=== PATIENT | female | born 1945 | race Caucasian/White ===

== ENCOUNTER 2018-06-24 08:48 | Observation (INO) | payer OTHER ==
--- NOTE | 2018-06-24 09:59 | ER ---
Nurse's Notes [facility] Name: Ligia Chandler Age: 73 yrs Sex: Female : 1945 Arrival Date: 06/24/2018 Time: 08:49 Bed 18 Private MD: Yuliana Green Diagnosis: Other chest pain;Type 1 diabetes mellitus;Essential (primary) hypertension;Cystitis;Acute sinusitis Presentation: 06/24 08:52 Presenting complaint: Patient states: fatigue, headache, sneezing, pressure in ears and ss intermittent chest discomfort that began 1 week ago. Transition of care: patient was not received from another setting of care. Onset of symptoms was June 17, 2018. Risk Assessment: Do you want to hurt yourself or someone else? Patient reports no desire to harm self or others. Initial Sepsis Screen: Does the patient meet any 2 criteria? No. Patient's initial sepsis screen is negative. Does the patient have a suspected source of infection? No. Patient's initial sepsis screen is negative. Care prior to arrival: None. 08:52 Method Of Arrival: Ambulatory ss 08:52 Acuity: KARINE 3 ss Historical: - Allergies: 08:57 Doxycycline; ss 08:57 Lisinopril; ss 08:57 Macrobid; ss 08:57 PENICILLINS; ss 08:57 Sulfa (Sulfonamide Antibiotics); ss 08:57 Zithromax; ss - Home Meds: 08:57 fenofibrate micronized 134 mg Oral cap 1 cap once daily [Active]; glimepiride 4 mg Oral ss tab 1 tab twice a day [Active]; metformin 1,000 mg Oral tab 1 tab 2 times per day [Active]; metoprolol tartrate 50 mg Oral tab 1 tab 2 times per day [Active]; rosuvastatin 10 mg oral tab 1 tab once daily [Active]; pantoprazole 40 mg oral TbEC 1 tab once daily [Active]; vasepa 2 caps once DAILY [Active]; Aspirin Low Dose 81 mg Oral TbEC 1 tab once daily [Active]; resiba flex touch, 20 units once daily [Active]; - PMHx: 08:57 Diabetes - IDDM; High Cholesterol; Hypertension; ss - PSHx: 08:57 Cholecystectomy; Heart stents; Hysterectomy; ss - Immunization history:: Adult Immunizations up to date. - Social history:: Smoking status: Patient/guardian denies using tobacco. - Ebola Screening: : Patient denies exposure to infectious person Patient denies travel to an Ebola-affected area in the 21 days before illness onset. - Family history:: not pertinent. Screenin:23 Abuse screen: Denies threats or abuse. Denies injuries from another. Nutritional ph screening: No deficits noted. Tuberculosis screening: No symptoms or risk factors identified. Fall Risk None identified. Assessment: 09:15 General: Appears in no apparent distress. comfortable, well groomed, Behavior is calm, ph cooperative, appropriate for age, Reports fatigue for 2-3 days, Denies fever, feeling ill. Pain: Complains of pain in chest. Neuro: Level of Consciousness is awake, alert, obeys commands, Oriented to person, place, time, situation. Cardiovascular: Reports chest pain, fatigue, Denies nausea, palpitations, shortness of breath, vomiting, Capillary refill < 3 seconds in bilateral fingers Patient's skin is warm and dry. Chest pain is located in right left anterior chest wall substernal area. Respiratory: Airway is patent Respiratory effort is even, unlabored, Respiratory pattern is regular, symmetrical. GI: No signs and/or symptoms were reported involving the gastrointestinal system. EENT: Reports nasal congestion. Derm: Skin is intact, is healthy with good turgor, Skin is pink, warm \T\ dry. Musculoskeletal: Circulation, motion, and sensation intact. Range of motion: intact in all extremities. 10:15 Reassessment: Patient appears in no apparent distress at this time. No changes from aj1 previously documented assessment. Patient and/or family updated on plan of care and expected duration. Pain level reassessed. Patient is alert, oriented x 3, equal unlabored respirations, skin warm/dry/pink. 11:15 Reassessment: Patient and/or family updated on plan of care and expected duration. Pain aj1 level reassessed. General: Appears in no apparent distress. comfortable, Behavior is calm, cooperative, appropriate for age. Neuro: Level of Consciousness is awake, alert, obeys commands. Cardiovascular: Patient's skin is warm and dry. Rhythm is sinus bradycardia. Respiratory: Airway is patent Respiratory effort is even, unlabored, Respiratory pattern is regular, symmetrical. GI: No signs and/or symptoms were reported involving the gastrointestinal system. : No signs and/or symptoms were reported regarding the genitourinary system. EENT: Reports nasal congestion. Derm: Skin is pink, warm \T\ dry. normal. Musculoskeletal: No signs and/or symptoms reported regarding the musculoskeletal system. Circulation, motion, and sensation intact. 12:00 Reassessment: Patient admission pending Dr. Gastelum going to talk to patient. Patient aj1 states that she does not want to be admitted. 12:29 Reassessment: Patient appears in no apparent distress at this time. No changes from aj1 previously documented assessment. Patient and/or family updated on plan of care and expected duration. Pain level reassessed. Patient is alert, oriented x 3, equal unlabored respirations, skin warm/dry/pink. 13:16 Reassessment: Dr. Gastelum at bedside to talk to patient. aj1 13:28 Reassessment: Spoke with Magy, [employer] on 4th floor. Was told to call back in aj1 5 minutes to give report because they are changing which nurse will receive the patient. 13:54 Reassessment: Patient appears in no apparent distress at this time. No changes from aj1 previously documented assessment. Patient and/or family updated on plan of care and expected duration. Pain level reassessed. Patient is alert, oriented x 3, equal unlabored respirations, skin warm/dry/pink. 13:54 Reassessment: Report given to DAVE Goetz on 4th. aj1 Vital Signs: 08:57 BP 165 / 88; Pulse 60; Resp 16; Temp 98.4(O); Pulse Ox 98% on R/A; Weight 73.48 kg; Height 5 ft. 3 in. (160.02 cm); Pain 4/10; 10:10 BP 151 / 74; Pulse 59; Resp 16; Pulse Ox 100% on R/A; ph 11:15 BP 155 / 72; Pulse 65; Resp 18; Pulse Ox 99% on R/A; aj1 12:35 BP 138 / 76; Pulse 57; Resp 12; Pulse Ox 98% on R/A; aj1 13:29 BP 148 / 96; Pulse 54; Resp 18; Pulse Ox 98% on R/A; aj1 08:57 Body Mass Index 28.70 (73.48 kg, 160.02 cm) ED Course: 08:49 Patient arrived in ED. sb2 08:50 Yuliana Green MD is Private Physician. sb2 08:53 Triage completed. ss 08:57 Arm band placed on right wrist. ss 09:23 Yamileth Mccarty RN is Primary Nurse. ph 09:24 Patient has correct armband on for positive identification. Placed in gown. Bed in low ph position. Call light in reach. Side rails up X 1. Pulse ox on. NIBP on. Warm blanket given. 09:24 EKG done, by photographic reproduction technician. reviewed by Estiven Gastelum MD. at1 09:27 Estiven Gastelum MD is Attending Physician. rachel 09:40 Initial lab(s) drawn, by me, sent to lab. Inserted saline lock: 22 gauge in right ph antecubital area, using aseptic technique. Blood collected. 09:56 Jayla Lee MD is Hospitalizing Provider. rachel 10:15 CT completed. Patient tolerated procedure well. Patient moved to CT via wheelchair. sj Patient moved back from CT. 10:30 X-ray completed. Portable x-ray completed in exam room. Patient tolerated procedure jb2 well. 12:30 No provider procedures requiring assistance completed. aj1 13:55 Patient admitted, IV remains in place. aj1 Administered Medications: 10:34 Drug: Aspirin Chewable Tablet 162 mg Route: PO; aj1 11:00 Follow up: Response: No adverse reaction ph 10:35 Drug: NS 0.9% 1000 ml Route: IV; Rate: 125 ml/hr; Site: right antecubital; aj1 13:00 Follow up: Response: No adverse reaction; IV Status: Infusion continued upon admission ph 10:35 Drug: Lovenox 1 mg/kg Route: Sub-Q; Site: right lower abdomen; aj1 11:00 Follow up: Response: No adverse reaction ph 10:35 Not Given (Patient Refused): morphine 2 mg IVP once aj1 10:35 Not Given (Patient Refused): Zofran 4 mg IVP once; over 2 minutes aj1 11:11 Drug: Rocephin - (cefTRIAXone) 2 grams Route: IVPB; Infused Over: 30 mins; Site: right aj1 antecubital; 19:33 Follow up: Response: No adverse reaction; IV Status: Completed infusion ph Outcome: 09:58 Decision to Hospitalize by Provider. rachel 14:41 Admitted to [facility] accompanied by tech, via wheelchair, with chart. aj1 14:41 Condition: stable 14:41 Discharge instructions given to patient, Instructed on the need for admit, Demonstrated understanding of instructions. 14:42 Patient left the ED. aj1 Signatures: Asiya Monte, RN RN aj1 Estiven Gastelum MD MD cha Buechter, Jesse jbLatricia Kevin Shelby, RN RN Araceli guzman, cable technician EKG Tat1 Yamileth Mccarty RN RN Kenya Berman 2
--- NOTE | 2018-06-24 09:59 | EDPHYS ---
Physician Documentation [facility] Name: Ligia Chandler Age: 73 yrs Sex: Female : 1945 Arrival Date: 06/24/2018 Time: 08:49 Bed 18 Private MD: Yuliana Green ED Physician Estiven Gastelum HPI: 06/24 09:51 This 73 yrs old Female presents to ER via Ambulatory with complaints of Chest rachel Congestion. 09:51 The patient or guardian reports chest pain that is located primarily in the substernal rachel area, anterior chest wall. Onset: 1 day(s) ago. The pain does not radiate. Associated signs and symptoms: The patient has no apparent associated signs or symptoms. The chest pain is described as causing indigestion, a pressure. Duration: The patient or guardian reports multiple episodes, with no pattern. Severity of pain: At its worst the pain was mild in the emergency department the pain is unchanged. The patient has experienced similar episodes in the past, a few times. Historical: - Allergies: 08:57 Doxycycline; ss 08:57 Lisinopril; ss 08:57 Macrobid; ss 08:57 PENICILLINS; ss 08:57 Sulfa (Sulfonamide Antibiotics); ss 08:57 Zithromax; ss - Home Meds: 08:57 fenofibrate micronized 134 mg Oral cap 1 cap once daily [Active]; glimepiride 4 mg Oral ss tab 1 tab twice a day [Active]; metformin 1,000 mg Oral tab 1 tab 2 times per day [Active]; metoprolol tartrate 50 mg Oral tab 1 tab 2 times per day [Active]; rosuvastatin 10 mg oral tab 1 tab once daily [Active]; pantoprazole 40 mg oral TbEC 1 tab once daily [Active]; vasepa 2 caps once DAILY [Active]; Aspirin Low Dose 81 mg Oral TbEC 1 tab once daily [Active]; resiba flex touch, 20 units once daily [Active]; - PMHx: 08:57 Diabetes - IDDM; High Cholesterol; Hypertension; ss - PSHx: 08:57 Cholecystectomy; Heart stents; Hysterectomy; ss - Immunization history:: Adult Immunizations up to date. - Social history:: Smoking status: Patient/guardian denies using tobacco. - Ebola Screening: : Patient denies exposure to infectious person Patient denies travel to an Ebola-affected area in the 21 days before illness onset. - Family history:: not pertinent. ROS: 09:51 Constitutional: Negative for fever, chills, and weight loss, Eyes: Negative for injury, rachel pain, redness, and discharge, ENT: Negative for injury, pain, and discharge, Neck: Negative for injury, pain, and swelling, Respiratory: Negative for shortness of breath, cough, wheezing, and pleuritic chest pain, Abdomen/GI: Negative for abdominal pain, nausea, vomiting, diarrhea, and constipation, Back: Negative for injury and pain, : Negative for injury, bleeding, discharge, and swelling, MS/Extremity: Negative for injury and deformity, Skin: Negative for injury, rash, and discoloration, Neuro: Negative for headache, weakness, numbness, tingling, and seizure, Psych: Negative for depression, anxiety, suicide ideation, homicidal ideation, and hallucinations, Allergy/Immunology: Negative for hives, rash, and allergies, Endocrine: Negative for neck swelling, polydipsia, polyuria, polyphagia, and marked weight changes, Hematologic/Lymphatic: Negative for swollen nodes, abnormal bleeding, and unusual bruising. 09:51 Cardiovascular: Positive for chest pain, of the chest. Exam: 09:51 Constitutional: This is a well developed, well nourished patient who is awake, alert, rachel and in no acute distress. Head/Face: Normocephalic, atraumatic. Eyes: Pupils equal round and reactive to light, extra-ocular motions intact. Lids and lashes normal. Conjunctiva and sclera are non-icteric and not injected. Cornea within normal limits. Periorbital areas with no swelling, redness, or edema. ENT: Nares patent. No nasal discharge, no septal abnormalities noted. Tympanic membranes are normal and external auditory canals are clear. Oropharynx with no redness, swelling, or masses, exudates, or evidence of obstruction, uvula midline. Mucous membranes moist. Neck: Trachea midline, no thyromegaly or masses palpated, and no cervical lymphadenopathy. Supple, full range of motion without nuchal rigidity, or vertebral point tenderness. No Meningismus. Chest/axilla: Normal chest wall appearance and motion. Nontender with no deformity. No lesions are appreciated. Cardiovascular: Regular rate and rhythm with a normal S1 and S2. No gallops, murmurs, or rubs. Normal PMI, no JVD. No pulse deficits. Respiratory: Lungs have equal breath sounds bilaterally, clear to auscultation and percussion. No rales, rhonchi or wheezes noted. No increased work of breathing, no retractions or nasal flaring. Abdomen/GI: Soft, non-tender, with normal bowel sounds. No distension or tympany. No guarding or rebound. No evidence of tenderness throughout. Back: No spinal tenderness. No costovertebral tenderness. Full range of motion. Skin: Warm, dry with normal turgor. Normal color with no rashes, no lesions, and no evidence of cellulitis. MS/ Extremity: Pulses equal, no cyanosis. Neurovascular intact. Full, normal range of motion. Neuro: Awake and alert, GCS 15, oriented to person, place, time, and situation. Cranial nerves II-XII grossly intact. Motor strength 5/5 in all extremities. Sensory grossly intact. Cerebellar exam normal. Normal gait. Psych: Awake, alert, with orientation to person, place and time. Behavior, mood, and affect are within normal limits. 09:51 Musculoskeletal/extremity: DVT Exam: No signs of deep vein thrombosis. no pain, no swelling, no tenderness, negative Homans' sign noted on exam, no appreciated bluish discoloration, no erythema, no increased warmth. Vital Signs: 08:57 BP 165 / 88; Pulse 60; Resp 16; Temp 98.4(O); Pulse Ox 98% on R/A; Weight 73.48 kg; Height 5 ft. 3 in. (160.02 cm); Pain 4/10; 10:10 BP 151 / 74; Pulse 59; Resp 16; Pulse Ox 100% on R/A; ph 11:15 BP 155 / 72; Pulse 65; Resp 18; Pulse Ox 99% on R/A; aj1 12:35 BP 138 / 76; Pulse 57; Resp 12; Pulse Ox 98% on R/A; aj1 13:29 BP 148 / 96; Pulse 54; Resp 18; Pulse Ox 98% on R/A; aj1 08:57 Body Mass Index 28.70 (73.48 kg, 160.02 cm) MDM: 09:28 Patient medically screened. [facility] 09:54 Data reviewed: vital signs, nurses notes, lab test result(s), EKG, radiologic studies, [facility] CT scan, plain films. 06/24 09:51 Order name: Basic Metabolic Panel; Complete Time: 14:28 [facility] 06/24 09:51 Order name: CBC with Diff; Complete Time: 10:50 [facility] 06/24 09:51 Order name: Ckmb; Complete Time: 14:28 [facility] 06/24 09:51 Order name: CPK; Complete Time: 14:28 [facility] 06/24 09:51 Order name: LFT's; Complete Time: 14:28 [facility] 06/24 09:51 Order name: Magnesium; Complete Time: 14:28 [facility] 06/24 09:51 Order name: NT PRO-BNP; Complete Time: 14:28 [facility] 06/24 09:51 Order name: PT-INR; Complete Time: 10:50 [facility] 06/24 09:51 Order name: Ptt, Activated; Complete Time: 10:50 [facility] 06/24 09:51 Order name: Troponin (emerg Dept Use Only); Complete Time: 10:50 [facility] 06/24 09:51 Order name: Lipase; Complete Time: 14:28 [facility] 06/24 09:51 Order name: Urine Culture [facility] 06/24 10:13 Order name: Urine Dipstick--Ancillary (enter results) 06/24 10:36 Order name: Urine Dipstick-Ancillary; Complete Time: 10:50 [facility] 06/24 09:51 Order name: XRAY Chest (1 view) [facility] 06/24 09:51 Order name: EKG; Complete Time: 09:52 [facility] 06/24 09:51 Order name: Cardiac monitoring; Complete Time: 10:36 [facility] 06/24 09:51 Order name: EKG - Nurse/Tech; Complete Time: 09:57 [facility] 06/24 09:51 Order name: CT Head Brain wo Cont [facility] 06/24 10:03 Order name: CONS Physician Consult [facility] 06/24 10:03 Order name: Echo with Doppler [facility] 06/24 10:24 Order name: CT; Complete Time: 10:50 [facility] 06/24 10:40 Order name: RAD; Complete Time: 10:50 [facility] 06/24 13:59 Order name: Diet Renal; Complete Time: 14:00 aj1 06/24 09:51 Order name: IV Saline Lock; Complete Time: 09:57 [facility] 06/24 09:51 Order name: Labs collected and sent; Complete Time: :58 [facility] 06/24 09:51 Order name: O2 Per Protocol; Complete Time: :58 [facility] 06/24 09:51 Order name: O2 Sat Monitoring; Complete Time: :58 [facility] 06/24 09:51 Order name: Urine Dipstick-Ancillary (obtain specimen); Complete Time: 10:07 [facility] Administered Medications: 10:34 Drug: Aspirin Chewable Tablet 162 mg Route: PO; aj1 11:00 Follow up: Response: No adverse reaction ph 10:35 Drug: NS 0.9% 1000 ml Route: IV; Rate: 125 ml/hr; Site: right antecubital; aj1 13:00 Follow up: Response: No adverse reaction; IV Status: Infusion continued upon admission ph 10:35 Drug: Lovenox 1 mg/kg Route: Sub-Q; Site: right lower abdomen; aj1 11:00 Follow up: Response: No adverse reaction ph 10:35 Not Given (Patient Refused): morphine 2 mg IVP once aj1 10:35 Not Given (Patient Refused): Zofran 4 mg IVP once; over 2 minutes aj1 11:11 Drug: Rocephin - (cefTRIAXone) 2 grams Route: IVPB; Infused Over: 30 mins; Site: right aj1 antecubital; 19:33 Follow up: Response: No adverse reaction; IV Status: Completed infusion ph Disposition: 06/24/18 09:58 Hospitalization ordered by Jayla Lee for Observation. Preliminary diagnosis are Other chest pain, Type 1 diabetes mellitus, Essential (primary) hypertension, Cystitis, Acute sinusitis. - Bed requested for Telemetry/MedSurg (observation). - Status is Observation. aj1 - Condition is Stable. - Problem is new. - Symptoms have improved. UTI on Admission? Yes Signatures: Dispatcher [employer] EDAsiya Ingram RN RN aj1 Estiven Gastelum MD MD cha Smirch, Shelby, RN RN ss Botello, Elizabeth eb Hall, Patricia RN ph Corrections: (The following items were deleted from the chart) 10:52 09:58 Hospitalization Ordered by Jayla Lee MD for Observation. Preliminary [facility] diagnosis is Other chest pain; Type 1 diabetes mellitus; Essential (primary) hypertension. Bed requested for Telemetry/MedSurg (observation). Status is Observation. Condition is Stable. Problem is new. Symptoms have improved. UTI on Admission? No. rachel 11:39 10:52 06/24/2018 09:58 Hospitalization Ordered by Jayla Lee MD for Observation. eb Preliminary diagnosis is Other chest pain; Type 1 diabetes mellitus; Essential (primary) hypertension; Cystitis; Acute sinusitis. Bed requested for Telemetry/MedSurg (observation). Status is Observation. Condition is Stable. Problem is new. Symptoms have improved. UTI on Admission? Yes. rachel 11:40 11:39 06/24/2018 09:58 Hospitalization Ordered by Jayla Lee MD for Observation. eb Preliminary diagnosis is Other chest pain; Type 1 diabetes mellitus; Essential (primary) hypertension; Cystitis; Acute sinusitis. Bed requested for Telemetry/MedSurg (observation). Status is Observation. Condition is Stable. Problem is new. Symptoms have improved. UTI on Admission? Yes. 14:42 11:40 06/24/2018 09:58 Hospitalization Ordered by Jayla Lee MD for Observation. aj1 Preliminary diagnosis is Other chest pain; Type 1 diabetes mellitus; Essential (primary) hypertension; Cystitis; Acute sinusitis. Bed requested for Telemetry/MedSurg (observation). Status is Observation. Condition is Stable. Problem is new. Symptoms have improved. UTI on Admission? Yes. eb
[2018-06-24] MEDS ORDERED: D50W 25 GM/50 ML SYRINGE IV PRN (10:03)
[2018-06-24] MEDS ORDERED: GLUCAGON 1 MG/VIAL IM PRN (10:03)
[2018-06-24] MEDS ORDERED: ASPIRIN 81 MG CHEWABLE TABLET ONE (10:19)
[2018-06-24] MEDS ORDERED: MORPHINE 4 MG/ML SYR ONE (10:19)
[2018-06-24] MEDS ORDERED: NA CHLORIDE 0.9% 1,000 ML ONE (10:20)
[2018-06-24] MEDS ORDERED: ENOXAPARIN 80 MG/0.8 ML SQ ONE (10:20)
[2018-06-24] MEDS ORDERED: ONDANSETRON 4 MG/2 ML VIAL ONE (10:20)
--- NOTE | 2018-06-24 10:24 | RAD REPORT ---
EXAM DESCRIPTION: CT - Head Brain Wo Cont - 06/24/2018 10:15 am CLINICAL HISTORY: Headache COMPARISON: March 2017 TECHNIQUE: Computed axial tomography of the head was obtained. IV contrast was not requested. All CT scans are performed using dose optimization technique as appropriate and may include automated exposure control or mA/KV adjustment according to patient size. FINDINGS: An intracranial bleed is not seen . The ventricles are normal in caliber. No extra-axial fluid collection is noted. Moderate low-density areas within periventricular, deep and subcortical white matter likely represent ischemic changes secondary to small vessel disease. Partial opacification of the right ethmoid sinuses is present. Right aspect of the frontal sinus is c ompletely opacified. The mastoids are clear. IMPRESSION: No acute intracranial abnormality is seen. If patient's symptoms persist MRI of the bra in would be recommended. Sinusitis
[2018-06-24 10:29] LABS: Absolute Lymphocytes (CBC) 1.1 K/uL (0.7-4.9); Absolute Monocytes 0.3 K/uL (0.1-1.3); Absolute Neutrophil 5.3 K/uL (1.8-8.0); Basophils % 0.9 % (0-1.3); Eosinophils % 3.2 % (0-4.4); Hematocrit 34.1 % (36.0-45.0); MCH 32.1 pg (27.0-35.0); MCV 93.6 fL (80-100); MPV 9.3 fL (7.6-11.3); Monocytes % 4.1 % (3.3-12.3); RBC Red Blood Cell Count 3.64 M/uL (3.86-4.86)
[2018-06-24 10:32] LABS: Protime INR 0.93
[2018-06-24 10:36] LABS: Urine Blood NEGATIVE (NEG); Urine Glucose NEGATIVE (NEG); Urine Protein NEGATIVE (NEG); Urine pH 5.5 (5.0-7.0)
--- NOTE | 2018-06-24 10:40 | RAD REPORT ---
EXAM DESCRIPTION: Devorah Single View06/24/2018 10:31 am CLINICAL HISTORY: Chest pain COMPARISON: 2015 FINDINGS: The lungs appear clear of acute infiltrate. The heart is normal size IMPRESSION: No acute abnormalities displayed
[2018-06-24 10:49] LABS: ALT/SGPT 23 U/L (12-78); AST/SGOT 17 U/L (15-37); Albumin 3.6 g/dL (3.4-5.0); Alkaline Phosphatase 49 U/L (45-117); BUN Blood Urea Nitrogen 16 mg/dL (7-18); Bicarbonate 26 mmol/L (21-32); Bilirubin Direct 0.1 mg/dL (0-0.2); Bilirubin Total 0.3 mg/dL (0.2-1.0); CKMB Creatine Kinase MB < 1.0 ng/mL (0.3-3.6); Creatine Phosphokinase 60 U/L (26-192); Glucose Level 257 mg/dL (74-106); Lipase 76 U/L (73-393); Magnesium 2.1 mg/dL (1.8-2.4); NT PRO-BNP 498 pg/mL (<125); Sodium Level 140 mmol/L (136-145)
[2018-06-24] MEDS ORDERED: CEFTRIAXONE/SWI 1gm 1 GM/10 ML SYR ONE (11:05)
[2018-06-24] MEDS: INSULIN -REGULAR HUMAN 50 UNIT/0.5 ML ML SQ SCH ×3 (11:30→20:18)
--- NOTE | 2018-06-24 14:19 | ECHO ---
HEIGHT: 5 ft 3 in WEIGHT: 1614 lb oz DATE OF STUDY: 06/24/[address]: Estiven Gastelum MD 2-DIMENSIONAL: YES M.MODE: YES DOPPLER: YES COLOR FLOW: YES TDS: NO PORTABLE: NO DEFINITY: NO BUBBLE STUDY: NO DIAGNOSIS: CHEST PAIN CARDIAC HISTORY: CATHERIZATION: YES SURGERY: NO PROSTHETIC VALVE: NO PACEMAKER: NO MEASUREMENTS (cm) DIASTOLIC (NORMALS) SYSTOLIC (NORMALS) IVSd 1.1 (0.6-1.2) LA Diam 3.7 (1.9-4.0) LVEF 65% LVIDd 4.3 (3.5-5.7) LVIDs 2.8 (2.0-3.5) %FS 35% LVPWd 1.2 (0.6-1.2) Ao Diam 2.3 (2.0-3.7) 2 DIMENSIONAL ASSESSMENT: RIGHT ATRIUM: NORMAL LEFT ATRIUM: NORMAL RIGHT VENTRICLE: NORMAL LEFT VENTRICLE: NORMAL TRICUSPID VALVE: NORMAL MITRAL VALVE: NORMAL PULMONIC VALVE: NORMAL AORTIC VALVE: NORMAL PERICARDIAL EFFUSION: NONE AORTIC ROOT: NORMAL LEFT VENTRICULAR WALL MOTION: NORMAL. DOPPLER/COLOR FLOW: MILD AORTIC REGURGITATION. MILD MITRAL REGURGITATION. PHYSIOLOGIC TRICUSPID REGURGITATION. NORMAL RIGHT VENTRICULAR SYSTOLIC PRESSURE. COMMENTS: NORMAL 2D ECHO. MILD AORTIC REGURGITATION. MILD MITRAL REGURGITATION. TECHNOLOGIST: KEILY AG
--- NOTE | 2018-06-24 14:34 | EKG ---
Test Date: 2018-06-24 Test Time: 09:21:11 Pediatric Neuropsychologist: LILIANA MEASUREMENT RESULTS: Intervals: Rate: 63 MI: 178 QRSD: 80 QT: 444 QTc: 454 [place]: P: 68 MI: 178 QRS: 4 T: 49 INTERPRETIVE STATEMENTS: Normal sinus rhythm Normal ECG Compared to ECG 05/31/2016 07:17:35 Sinus bradycardia no longer present Left ventricular hypertrophy no longer present Electronically Signed On 06-24-18 14:34:15 CDT by Aramis Gerber
[2018-06-24 15:38] VITALS: O2SAT 100; BMI 28.0
[2018-06-24] MEDS: PANTOPRAZOLE 40MG TABLET PO SCH (16:32)
--- NOTE | 2018-06-24 17:12 | P.HP ---
Certification for Inpatient Patient admitted to: Observation With expected LOS: <2 Midnights Patient will require the following post-hospital care: None Practitioner: I am a practitioner with admitting privileges, knowledge of patient current condition, hospital course, and medical plan of care. Services: Services provided to patient in accordance with Admission requirements found in Title 42 Section 412.3 of the Code of Federal Regulations Patient History Date of Service: 06/24/18 Primary Care Provider: Dr Garcia - PCP and Dr Gerber - Cardiology Reason for admission: Chest pain History of Present Illness: This is a 73-year-old female with significant past medical history of hypertension, diabetes who presented to the ED complaining of having some chest discomfort. Patient stated that her chest discomfort started about 1 week ago while she was outside in the heat, painting chairs. Patient's initially thought it was her allergies that were getting worse. She was having some postnasal drip along with the chest pain. further this morning she started having some jaw numbness and thus decided to come to the ER. Patient stated that in the ER she has continued to have the chest discomfort which was dull in nature. She also had numbness to the jaw which concerned her and thus she decided to come to the ER. No other associated symptoms. Patient had having any shortness of breath nausea vomiting or in any other associated symptoms. Allergies azithromycin [From Zithromax] Allergy (Verified 01/11/15 16:20) Rash lisinopril Allergy (Verified 06/24/18 15:46) Rash nitrofurantoin [From Macrobid] Allergy (Verified 01/11/15 16:20) Rash nitrofurantoin macrocrystal [From Macrobid] Allergy (Verified 01/11/15 16:20) Rash Penicillins Allergy (Verified 01/11/15 16:20) Rash Sulfa (Sulfonamide Antibiotics) Allergy (Verified 01/11/15 16:20) Rash Doxycycline Allergy (Uncoded 06/02/16 10:33) Unknown Home Medications: Aspirin [Low Dose Aspirin EC] 81 mg PO DAILY 06/24/18 Cholecalciferol (Vitamin D3) [Vitamin D3] 5,000 unit PO DAILY 06/24/18 Cyanocobalamin [Vitamin B-12*] 1,000 mcg PO DAILY 06/24/18 Docosahexanoic AC/Epa [Fish Oil 1,000 MG*] 1,000 mg PO DAILY 06/24/18 Fenofibrate,Micronized [Fenofibrate] 134 mg PO DAILY 06/24/18 Glimepiride 4 mg PO BID 06/24/18 Glucosamine HCl/Chondr Duke A Na [Osteo Bi-Flex Caplet] 1 tab PO DAILY 06/24/18 Insulin Degludec [Tresiba Flextouch U-200] 20 units SQ DAILY 06/24/18 Metformin HCl 1,000 mg PO BID 06/24/18 Metoprolol Tartrate [Lopressor*] 50 mg PO BID 06/24/18 Pantoprazole Sodium [Protonix] 40 mg PO DAILY 06/24/18 Rosuvastatin [Crestor*] 10 mg PO DAILY 06/24/18 - Past Medical/Surgical History Has patient received pneumonia vaccine in the past: Yes Diabetic: Yes -: Diabetes mellitus type 2 -: Coronary artery disease, stent 2014, Cardiology-Dr. Gerber -: Hypertension -: Hyperlipidemia -: GERD with hiatal hernia -: Cholecystectomy -: Hysterectomy -: Cardiac Stent placement Psychosocial/ Personal History: She is 50 years, has 2 children, she is retired. - Family History Mother -: Heart disease, Cancer Notes: breast Cancer; bone cancer Father -: Heart disease - Social History Smoking Status: Never smoker Alcohol use: No CD- Drugs: No Caffeine use: Yes Place of Residence: Home Review of Systems General: As per HPI Physical Examination - Vital Signs Temperature: 97.3 F Blood Pressure: 166/70 Pulse: 62 Respirations: 18 Pulse Ox (%): 95 - Physical Exam General: Alert, In no apparent distress HEENT: Atraumatic, PERRLA, Mucous membr. moist/pink, EOMI, Sclerae nonicteric Neck: Supple, 2+ carotid pulse no bruit, No LAD, Without JVD or thyroid abnormality Respiratory: Clear to auscultation bilaterally, Normal air movement Cardiovascular: Regular rate/rhythm, Normal S1 S2 Gastrointestinal: Normal bowel sounds, No tenderness Musculoskeletal: No tenderness Integumentary: No rashes Neurological: Normal gait, Normal speech, Normal strength at 5/5 x4 extr, Normal tone, Normal affect Lymphatics: No axilla or inguinal lymphadenopathy - Studies Laboratory Data (last 24 hrs) 06/24/18 09:55: PT 11.0, INR 0.93, APTT 30.8 06/24/18 09:55: WBC 7.0, Hgb 11.7 L, Hct 34.1 L, Plt Count 329 06/24/18 09:55: Sodium 140, Potassium 4.0, BUN 16, Creatinine 1.00, Glucose 257 H, Magnesium 2.1, Total Bilirubin 0.3, AST 17, ALT 23, Alkaline Phosphatase 49, Lipase 76 Assessment and Plan - Problems (Diagnosis) (1) Chest pain Onset Date: 05/31/16 Current Visit: No Status: Acute Plan: Patient with coronary artery disease and previous stent in 2014. Atypical Chest Pain -Troponin x 1 negative and EKG WNL. -Cardiology consulted. Awaiting Reccs -ACS protocol: BB, Anticoagulation, Statin -ECHO WNL today Qualifiers: Chest pain type: other chest pain Qualified Code(s): R07.89 - Other chest pain; R07.8 - Other chest pain (2) Coronary artery disease Onset Date: 05/31/16 Current Visit: No Status: Chronic Plan: Restart on Home medication Qualifiers: Coronary Disease-Associated Artery/Lesion type: [place] artery [place] vs. transplanted heart: [place] heart Associated angina: without angina Qualified Code(s): I25.10 - Atherosclerotic heart disease of [place] coronary artery without angina pectoris (3) Diabetes mellitus Onset Date: 05/31/16 Current Visit: No Status: Chronic Plan: ISS Qualifiers: Diabetes mellitus type: type 2 Diabetes mellitus terminal superintendent insulin use: without residential use Diabetes mellitus complication status: without complication Qualified Code(s): E11.9 - Type 2 diabetes mellitus without complications (4) Hiatal hernia with GERD Onset Date: 05/31/16 Current Visit: No Status: Chronic Plan: Protonix (5) Hyperlipidemia Onset Date: 05/31/16 Current Visit: No Status: Chronic Qualifiers: Hyperlipidemia type: mixed hyperlipidemia Qualified Code(s): E78.2 - Mixed hyperlipidemia (6) Hypertension Onset Date: 05/31/16 Current Visit: No Status: Chronic Qualifiers: Hypertension type: essential hypertension - Advance Directives Does patient have a Living Will: No Does patient have a Durable POA for Healthcare: No
[2018-06-24] MEDS ORDERED: ACETAMINOPHEN 500 MG TAB PO PRN (18:22)
[2018-06-24] MEDS ORDERED: ONDANSETRON 4 MG/2 ML VIAL IV PRN (18:22)
[2018-06-24] MEDS: METOPROLOL TAR 50 MG TAB PO SCH (20:16)
[2018-06-24] MEDS ORDERED: ROSUVASTATIN 10 MG TAB PO SCH (21:00)
[2018-06-25 06:44] LABS: Absolute Lymphocytes (CBC) 2.4 K/uL (0.7-4.9); Absolute Monocytes 0.4 K/uL (0.1-1.3); Absolute Neutrophil 4.2 K/uL (1.8-8.0); Basophils % 1.2 % (0-1.3); Eosinophils % 5.4 % (0-4.4); Hematocrit 34.2 % (36.0-45.0); Lymphocytes % 31.4 % (15.3-44.8); MCV 93.3 fL (80-100); MPV 9.7 fL (7.6-11.3); Monocytes % 5.9 % (3.3-12.3); RBC Red Blood Cell Count 3.67 M/uL (3.86-4.86)
[2018-06-25 06:57] LABS: Albumin 3.4 g/dL (3.4-5.0); Bilirubin Total 0.3 mg/dL (0.2-1.0); Potassium 3.9 mmol/L (3.5-5.1); Protein, Total 6.8 g/dL (6.4-8.2)
--- NOTE | 2018-06-25 06:59 | CON ---
Identification: A 73-year-old woman. Chief Complaint: Chest pain. History Of Present Illness: Mrs. Chandler is a woman who has diabetes. She had a stent in her circum flex coronary artery in 2015. She has done well since then. She has atypical chest pain most of the time. Last time I saw her in the office and recommended doing a stress test because I was very susp icious that the pain was caused by recurrent CAD, but she managed not to do a stress test. She is he re in the hospital now, overnight she has had chest pain for many weeks, months, it is atypical. It is in the upper part of her chest, not pleuritic, but it is constant, not related to exertion. Nothi ng in particular seems to relieve it and it comes and goes in waves that just last 10 or 15 seconds. Since she has been in the hospital, EKGs and cardiac enzymes are normal and an echocardiogram is nor mal. Social History: The patient uses no tobacco. Rare alcohol. No illegal drugs. Outpatient Medications: Vitamin B12, vitamin D3, aspirin, glucosamine, Protonix, Crestor, metoprolol , metformin, glimepiride, fenofibrate, fish oil, insulin. Allergies: SHE IS ALLERGIC TO AZITHROMYCIN, LISINOPRIL, NITROFURANTOIN. Physical Examination: Vital Signs: 5 feet 3, 161 pounds. HEENT: Normal carotids. No bruit. Lungs: Clear. Cardiac: Normal. Abdomen: Soft. Extremities: Palpable distal pulses. No edema. Impression: The patient probably is not having unstable angina. I believe she has stable coronary a rtery disease. We will do a pharmacologic stress test that is okay today. She can be discharged. TILA Voice ID: [id number] Report ID: [id number]
[2018-06-25] MEDS: INSULIN -REGULAR HUMAN 50 UNIT/0.5 ML ML SQ SCH ×3 (07:30→17:04)
[2018-06-25] MEDS: PANTOPRAZOLE 40MG TABLET PO SCH (07:30)
[2018-06-25] MEDS: METOPROLOL TAR 50 MG TAB PO SCH ×2 (07:50→16:23)
[2018-06-25] MEDS ORDERED: REGADENOSON 0.4 MG/5 ML SYR IV ONE (08:56)
[2018-06-25] MEDS ORDERED: ENOXAPARIN 40 MG/0.4 ML SQ SCH (09:00)
[2018-06-25] MEDS ORDERED: HOME MED 1 EA UNK (Fenofibrate,Micronized [Fenofibrate] 134 MG) PO SCH (09:00)
[2018-06-25] MEDS ORDERED: POTASSIUM 25 MEQ EFFERV TAB PO ONE (09:00)
[2018-06-25] MEDS ORDERED: CYANOCOBALAMIN 1,000 MCG TAB PO SCH (09:00)
[2018-06-25] MEDS ORDERED: VITAMIN D 5,000 UNIT CAP PO SCH (09:00)
[2018-06-25] MEDS ORDERED: ASPIRIN EC 81 MG TAB PO SCH (09:00)
--- NOTE | 2018-06-25 10:29 | RAD REPORT ---
EXAM DESCRIPTION: NM - Rest Stress Cardiac Imaging - 06/25/2018 9:54 am CLINICAL HISTORY: Chest pain COMPARISON: None. TECHNIQUE: The patient was administered 10.5 mCi of Tc 99m Sestamibi prior to resting SPECT imaging of the heart. The patient was then administered 31.4 mCi of Tc 99m Sestamibi following exercise or ph armacologic stress. Multiplanar SPECT images were reviewed. FINDINGS: The end diastolic volume is 73 ml, the end systolic volume is 20 ml, and the ejection frac tion is 72 %. No stress-induced ischemic changes are identifiable. Focal diminished activity at the anteroseptal ap ex is unchanged between rest and stress imaging. This could be scarring, attenuation artifact or a co mbination. IMPRESSION: No stress-induced ischemic change. Small fixed defect anteroseptal wall near the apex. This could be attenuation artifact, scarring or a combination. Ventricular volumes and ejection fraction are well within normal limits.
--- NOTE | 2018-06-25 12:45 | TREADPHA ---
DX: CHEST PAIN, CORNARY ARTERY DISEASE Date of Study: 06/25/2018 Ht: 5 3.5 Wt: 161 lb 0 oz Consulting Physician: LOI MEDICATIONS: TYLENOL, ASPIRIN, VITAMIN D, VITAMIN B12, DEXTROSE, LOVENOX, GLUCAGEN, NOVOLIN-R,, LOPRESSOR, ZOFRAN, PROTONIX, CRESTOR HISTORY: 73 YEAR OLD FEMALE WITH COMPLAINTS OF CHEST PAIN. HISTORY OF DIABETES MELLITUS AND HYPERTENSION. PHYSICIAL EXAMINATION: RESTING B.P.: 154/68 RESTING H.R.: 58 RESTING EKG: SINUS BRADYCARDIA, OTHERWISE NORMAL PROTOCOL: LEXISCAN EXERCISE TIME: 3:30 B.P. AT PEAK STRESS: 168/89 IMPRESSION: LEXISCAN INJECTED. CARDIOLITE INJECTED PER PROTOCOL. SEE NUCLEAR MEDICINE REPORT. COMPLAINTS OF CHEST PRESSURE TWO OUT OF TEN ON PAIN SCALE. NO VENTRICULAR TACHYCARDIA. NO SUPRAVENTRICULAR TACHYCARDIA. NON-DIAGNOSTIC ELECTROCARDIOGRAM WITH LEXISCAN STRESS.
--- NOTE | 2018-06-25 16:01 | P.DS ---
Admission Date: 06/24/18 Discharge Date: 06/25/18 Primary Care Provider: Dr Garcia - PCP and Dr Gerber - Cardiology Disposition: ROUTINE DISCHARGE Discharge Condition: GOOD Reason for Admission: Chest pain - Problems (1) Chest pain Onset Date: 05/31/16 Current Visit: No Status: Acute Qualifiers: Chest pain type: other chest pain Qualified Code(s): R07.89 - Other chest pain; R07.8 - Other chest pain (2) Coronary artery disease Onset Date: 05/31/16 Current Visit: No Status: Chronic Qualifiers: Coronary Disease-Associated Artery/Lesion type: [place] artery [place] vs. 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 insulin use: without watermelon inspector use Diabetes mellitus complication status: without complication Qualified Code(s): E11.9 - Type 2 diabetes mellitus without complications (4) Hiatal hernia with GERD Onset Date: 05/31/16 Current Visit: No Status: Chronic (5) Hyperlipidemia Onset Date: 05/31/16 Current Visit: No Status: Chronic Qualifiers: Hyperlipidemia type: mixed hyperlipidemia Qualified Code(s): E78.2 - Mixed hyperlipidemia (6) Hypertension Onset Date: 05/31/16 Current Visit: No Status: Chronic Qualifiers: Hypertension type: essential hypertension Brief History of Present Illness: This is a 73-year-old female with significant past medical history of hypertension, diabetes who presented to the ED complaining of having some chest discomfort. Patient stated that her chest discomfort started about 1 week ago while she was outside in the heat, painting chairs. Patient's initially thought it was her allergies that were getting worse. She was having some postnasal drip along with the chest pain. further this morning she started having some jaw numbness and thus decided to come to the ER. Patient stated that in the ER she has continued to have the chest discomfort which was dull in nature. She also had numbness to the jaw which concerned her and thus she decided to come to the ER. No other associated symptoms. Patient had having any shortness of breath nausea vomiting or in any other associated symptoms. Hospital Course: Overall during the hospital stay patient remained stable Patient was initially admitted the hospital for chest pain. Patient had echocardiogram done here in the hospital along with stress test. All were negative thus r/o ACS. Patient was that he had marked anxiety. Patient was asked to follow up with her primary care provider for per appropriate medication for anxiety and stress relief. Patient demonstrated understanding and thus was discharged home under stable condition. Patient was also asked to follow up with cardiology in about 1-2 weeks post discharge. Patient does not need any further cardiac workup. Patient demonstrated understanding and thus was discharged home under stable condition Vital Signs/Physical Exam: Temp Pulse Resp BP Pulse Ox 97.7 F 56 16 141/62 H 99 06/25/18 12:00 06/25/18 12:00 06/25/18 12:00 06/25/18 12:00 06/25/18 12:00 General: Alert, In no apparent distress HEENT: Atraumatic, PERRLA, EOMI Neck: Supple, JVD not distended Respiratory: Clear to auscultation bilaterally, Normal air movement Cardiovascular: Regular rate/rhythm, Normal S1 S2 Gastrointestinal: Normal bowel sounds, No tenderness Musculoskeletal: No tenderness Integumentary: No rashes Neurological: Normal speech, Normal tone, Normal affect Lymphatics: No axilla or inguinal lymphadenopathy Laboratory Data at Discharge: WBC 7.6 K/uL (4.3-10.9) 06/25/18 05:34 Hgb 11.7 g/dL (12.0-15.0) L 06/25/18 05:34 Hct 34.2 % (36.0-45.0) L 06/25/18 05:34 Plt Count 292 K/uL (152-406) 06/25/18 05:34 PT 11.0 SECONDS (9.5-12.5) 06/24/18 09:55 INR 0.93 06/24/18 09:55 APTT 30.8 SECONDS (24.3-36.9) 06/24/18 09:55 Sodium 143 mmol/L (136-145) 06/25/18 05:34 Potassium 3.9 mmol/L (3.5-5.1) 06/25/18 05:34 BUN 19 mg/dL (7-18) H 06/25/18 05:34 Creatinine 0.90 mg/dL (0.55-1.3) 06/25/18 05:34 Glucose 126 mg/dL (74-106) H 06/25/18 05:34 Phosphorus 3.4 mg/dL (2.5-4.9) 06/25/18 05:34 Magnesium 2.1 mg/dL (1.8-2.4) 06/24/18 09:55 Total Bilirubin 0.3 mg/dL (0.2-1.0) 06/25/18 05:34 AST 15 U/L (15-37) 06/25/18 05:34 ALT 21 U/L (12-78) 06/25/18 05:34 Alkaline Phosphatase 46 U/L (45-117) 06/25/18 05:34 Troponin I < 0.02 ng/mL (0.0-0.045) 06/25/18 10:49 Lipase 76 U/L (73-393) 06/24/18 09:55 Home Medications: Aspirin [Low Dose Aspirin EC] 81 mg PO DAILY 06/24/18 Cholecalciferol (Vitamin D3) [Vitamin D3] 5,000 unit PO DAILY 06/24/18 Cyanocobalamin [Vitamin B-12*] 1,000 mcg PO DAILY 06/24/18 Docosahexanoic AC/Epa [Fish Oil 1,000 MG*] 1,000 mg PO DAILY 06/24/18 Fenofibrate,Micronized [Fenofibrate] 134 mg PO DAILY 06/24/18 Glimepiride 4 mg PO BID 06/24/18 Glucosamine HCl/Chondr Duke A Na [Osteo Bi-Flex Caplet] 1 tab PO DAILY 06/24/18 Insulin Degludec [Tresiba Flextouch U-200] 20 units SQ DAILY 06/24/18 Metformin HCl 1,000 mg PO BID 06/24/18 Metoprolol Tartrate [Lopressor*] 50 mg PO BID 06/24/18 Pantoprazole Sodium [Protonix] 40 mg PO DAILY 06/24/18 Rosuvastatin [Crestor*] 10 mg PO DAILY 06/24/18 Diet: Regular Activity: [place] Followup: Aramis Gerber MD [ACTIVE - CAN ADMIT] - 1 Week
[2018-06-25 16:30] VITALS: TEMP 97.5
[2018-06-25 17:46] VITALS: BP 170/72
== END 2018-06-25 18:25 | disposition home or self-care (01) ==
LOC: ER 08:48 → ERHOLD 09:59 → 4TH 13:58
PROVIDERS: ADMIT Family Medicine; ATTEND Family Medicine
DX: R07.89 Other chest pain (principal); R00.1 Bradycardia, unspecified; I25.10 Atherosclerotic heart disease of native coronary artery without angina pectoris; K21.9 Gastro-esophageal reflux disease without esophagitis; K44.9 Diaphragmatic hernia without obstruction or gangrene; E11.9 Type 2 diabetes mellitus without complications; E78.2 Mixed hyperlipidemia; I10 Essential (primary) hypertension; F41.9 Anxiety disorder, unspecified; Z79.82 Long term (current) use of aspirin; Z79.4 Long term (current) use of insulin; Z95.5 Presence of coronary angioplasty implant and graft; Z88.1 Allergy status to other antibiotic agents; Z88.3 Allergy status to other anti-infective agents; Z88.8 Allergy status to other drugs, medicaments and biological substances; Z88.0 Allergy status to penicillin; Z88.2 Allergy status to sulfonamides
CPT/HCPCS: 36415; 70450; 71045; 78452; 80048; 80053; 80076; 81003; 82550; 82553; 82962 ×5; 83690; 83735; 83880; 84100; 84484 ×4; 85025 ×2; 85610; 85730; 87086; 87088; 93005; 93017; 93306; 96361; 96365; 96366; 96372; 99285; A9500; G0378 ×2; J0696; J1650 ×2; J2405; J2785; J7030

== ENCOUNTER 2023-01-29 19:44 | Emergency (ER) | payer MEDICARE, OTHER ==
--- OUTSIDE RECORDS SUMMARY | 2023-01-29 19:47 | XMS REPORT | Continuity of Care Document ---
:1945 Author Organization [facility] t Address [address] [place] [address] Care Team Providers Name Role Phone SADIQ VEGA Primary Care Physician Unavailable SADIQ VEGA Attending Clinician Unavailable Sadiq Vega MD Attending Clinician Doctor Unassigned, [place] Attending Clinician Unavailable Lena_Jillian_AH Attending Clinician Unavailable SADIQ VEGA Admitting Clinician Unavailable Sadaf Admitting Clinician Unavailable Payers Payer Name Policy Type Policy Number Effective Date Expiration Date S sergei [employer] [place] [id number] 2022 CLASSIC NO PREMIUM 00:00:00 [facility] [place] [id number] 2019 [place] 00:00:00 (MEDICARE REPLACEMENT/ADVANT AGE - HMO) Problems Condition Condition Condition Status Onset Resolution Last Treating Co mments Source Name Details Category Date Date Treatment Clinician Date Type 2 Type 2 Problem Active 2020-0 [place] diabetes Diabetes 4-20 Family mellitus Mellitus 00:00: Practi c 00 e Hyperlipid Hyperlipid Problem Active 2020-0 [facility] emia emia 4-20 Family 00:00: Practic 00 e Essential Essential Problem Active 2019-0 Karen dylan hypertensi Hypertensi 4-20 Fa ubaldo on on 00:00: Practic 00 e Gastroesop Gastroesop Problem Active 2020-0 [facility] hageal hageal 4-20 Family reflux Reflux 00:00: Practic disease Disease 00 e Allergies, Adverse Reactions, Alerts Allergy Allergy Status Severity Reaction(s) Onset Inactive Treating Comm ents Source Name Type Date Date Clinician Amoxicil Allergy Active Moderate Hives Finney ge demi to to severe Family substanc Practic e e Macrobid Allergy Active Moderate Hives Finney ge to to severe Family substanc Practic e e SULFA Allergy Active Moderate Hives [place] (SULFONA to to severe Famil y MIDE substanc Practic ANTIBIOT e e ICS) ZITHROMA Allergy Active Moderate Hives Finney ge X Z-MERA to to severe Family substanc Practic e e NO KNOWN Drug Active [facility] ALLERGIE Class ity of [facility] Social History Social Habit Start Date Stop Date Quantity Comments Source Exposure to Not sure [facility] SARS-CoV-2 (event) Medica l Branch Sex Assigned At [birth year] [facility] 00:00:00 00:00:00 Medical [place] Smoking Status Start Date Stop Date Source Unknown if ever smoked [facility] Never Smoker [facility] Medications Ordered Filled Start Stop Current Ordering Indication Dosage Frequency Signature Comments Components Source Medication Medication Date Date Medication? Clinician (SIG) Name Name Aspir-81 mg Aspir-81 mg No 1 Q1D Aspir-81 [place] tablet,basim tablet,basim mg F amily yed release yed release tablet,del Practic Take 1 Take 1 ayed e tablet tablet release every day every day Take 1 by oral by oral tablet route. route. every day by oral route. B12 1 tab B12 1 tab No B12 1 tab [place] daily daily daily Family Practic e fenofibrate fenofibrate No 1capsul Q1D fenofibrat [facility] micronized micronized e(s) e Fam natalia 134 mg 134 mg micronized Pract ic capsule capsule 134 mg e Take 1 Take 1 capsule capsule capsule Take 1 every day every day capsule by oral by oral every day route. route. by oral route. Flonase Flonase No 1spray( Q1D Flonase Karen dylan Allergy Allergy s) Allergy Family Relief 50 Relief 50 Relief 50 Practic mcg/actuati mcg/actuati mcg/actuat e on nasal on nasal ion nasal spray,suspe spray,suspe spray,susp nsion [place] nsion [place] ension 1 spray 1 spray [place] 1 every day every day spray by by every day intranasal intranasal by route. route. intranasal route. glimepiride glimepiride No 1 Q1D glimepirid [facility] 4 mg tablet 4 mg tablet e 4 mg Family Take 1 Take 1 tablet Practic tablet tablet Take 1 e every day every day tablet by oral by oral every day route. route. by oral route. hydrochloro hydrochloro No 1capsul Q1D hydrochlor [facility] thiazide thiazide e(s) othiazide Fa ubaldo 12.5 mg 12.5 mg 12.5 mg Practi c capsule capsule capsule e Take 1 Take 1 Take 1 capsule capsule capsule every day every day every day by oral by oral by oral route. route. route. metformin metformin No 1 BID metformin [facility] 1,000 mg 1,000 mg 1,000 mg Fam natalia tablet Take tablet Take tablet Practic 1 tablet 1 tablet Take 1 e twice a day twice a day tablet by oral by oral twice a route. route. day by oral route. metoprolol metoprolol No 1 Q1D metoprolol [facility] succinate succinate succinate [facility] ER 50 mg ER 50 mg ER 50 mg Pra ctic tablet,exte tablet,exte tablet,ext e nded nded ended release 24 release 24 release 24 hr Take 1 hr Take 1 hr Take 1 tablet tablet tablet every day every day every day by oral by oral by oral route. route. route. rosuvastati rosuvastati No 1 Q1D rosuvastat [facility] n 10 mg n 10 mg in 10 mg Famil y tablet Take tablet Take tablet Practic 1 tablet 1 tablet Take 1 e every day every day tablet by oral by oral every day route. route. by oral route. Tresiba Tresiba No 1unit(s Tresiba Karen dylan U-100 U-100 ) U-100 [facility] Insulin 100 Insulin 100 Insulin Practic unit/mL unit/mL 100 e subcutaneou subcutaneou unit/mL s solution s solution subcutaneo Inject 1 Inject 1 us unit by unit by solution subcutaneou subcutaneou Inject 1 s route. s route. unit by subcutaneo us route. Vascepa 1 Vascepa 1 No 2capsul BID Vascepa 1 [facility] gram gram e(s) gram Family capsule capsule capsule Practi c Take 2 Take 2 Take 2 e capsules capsules capsules twice a day twice a day twice a by oral by oral day by route. route. oral route. Vital Signs Vital Name Observation Time Observation Value Comments Source Height 2020-06-19 00:00:00 63 [in_i] [facility] BMI (Body Mass 2020-06-19 00:00:00 28.5 kg/m2 Raymundo henrietta [facility] Index) Practice Body Weight 2020-06-19 00:00:00 161 [lb_av] [facility] Procedures Procedure Date / Time Performed Performing Clinician Shalom henrietta ASSIGNMENT OF BENEFITS 2022-01-24 16:04:26 Doctor Marilee, Ann [facility] Plan of Care Planned Activity Planned Date Details Comments Source Instructions [facility] Encounters Start End Encounter Admission Attending Care Care Encounter Source Date/Time Date/Time Type Type Clinicians Facility Department ID 2022-01-24 2022-01-24 [id number] [facility] 10:05:09 23:59:00 VINITHA ity of [facility] 2022-01-24 2022-01-24 [facility] [id number] Univers 10:00:00 23:59:00 Encounter Sadiq CHAN [id number] ity [id number] [facility] [address] [place] 2022-01-24 2022-01-24 Orders Doctor SMITH [id number] Univers 00:00:00 00:00:00 Only Unassigned, JOLENE [id number] [facility] [id number] [place] [id number] [facility] [address] Branch 2020-10-12 2020-10-12 Outpatient Jose-Mbayo VFP [facility] 79 [facility] 03:38:00 03:38:00 _A_AH [id number] Family Practic e 2020-10-12 2020-10-12 Outpatient Jose-Mbayo [facility]FP [facility] [address] [facility] 03:38:00 03:38:00 _A_AH [id number] Family Practic e 2020-10-12 2020-10-12 Outpatient Jose-Mbayo [facility]FP [facility] 794 [facility] 03:38:00 03:38:00 _A_AH [id number] Family Practic e 2020-07-27 2020-07-27 Outpatient Jose-Mbayo [facility] 794 [facility] 11:53:00 11:53:00 _A_AH [id number] Family Practic e 2020-07-20 2020-07-20 Outpatient Jose-Mbayo [facility]FP [facility] [id number] [facility] 04:36:00 04:36:00 _A_AH [id number] Family Practic e 2020-07-05 2020-07-05 Outpatient Jose-Mbayo [facility]FP [facility] [id number] [facility] 07:42:00 07:42:00 _A_AH [id number] Family Practic e 2020-06-28 2020-06-28 Outpatient Jose-Mbayo [facility]FP [facility] [id number] [facility] 07:17:00 07:17:00 _A_AH [id number] Family Practic e 2020-06-22 2020-06-22 Outpatient Jose-Mbayo [facility]FP [facility] 794 [facility] 10:18:00 10:18:00 _A_AH [id number] Family Practic e 2020-06-19 2020-06-19 [place] [facility] [place] - [id number] [place] 00:00:00 00:00:00 Jose-Mbay [facility] natalia singer COMMUNITY SERVICES OFFICER: Medical - Practi c [address] _[email or web address] e [place], [place] [address], [place] [address] , Ph. 2020-01-12 2020-01-12 Outpatient Jose-Mbayo [facility]FP [facility] 07:17:00 07:17:00 _A_AH [id number] Family Practic e Results This patient has no known results.
--- NOTE | 2023-01-29 21:17 | RAD REPORT ---
EXAM DESCRIPTION: CT - Head Brain Wo Cont - 01/29/2023 8:47 pm CLINICAL HISTORY: DIZZINESS Fall. COMPARISON: 10/16/2018 TECHNIQUE: Noncontrast head CT images ad were obtained without IV contrast. Multiplanar reformats we re generated and reviewed. All CT scans are performed using dose optimization technique as appropriate and may include automated exposure control or mA/KV adjustment according to patient size. FINDINGS: No intracranial hemorrhage, mass, or edema. Midline structures are unremarkable. Stable ventricular caliber. Moderate diffuse parenchymal volume loss. Subtle deep white matter and periventricular hypoattenuation, nonspecific, but suggestive of chronic small vessel ischemic changes. Robles-white matter differentiation is preserved, without evidence of ac akiak infarct. No abnormal extra-axial fluid collections. Mastoid air cells and visualized portions of the paranasal sinuses are clear. No acute bony findings. IMPRESSION: No evidence of an acute intracranial process. Chronic findings as above.
[2023-01-29 21:22] LABS: Absolute Lymphocytes (CBC) 1.2 K/uL (0.7-4.9); Hematocrit 31.5 % (36.0-45.0); Lymphocytes % 10.6 % (15.3-44.8); MPV 8.1 fL (7.6-11.3); RBC Red Blood Cell Count 3.39 M/uL (3.86-4.86)
--- NOTE | 2023-01-29 21:25 | RAD REPORT ---
EXAM DESCRIPTION: RAD - Shoulder Left 2 View - 01/29/2023 8:59 pm CLINICAL HISTORY: Deformity. Fall COMPARISON: None. TECHNIQUE: Internal and external rotation views of the left shoulder were obtained. FINDINGS: Mildly comminuted and slightly impacted fracture of the left humeral head. Mild subluxatio n with widening of the superior glenohumeral joint space. AC joint is normal in appearance. Surroundi ng soft tissue swelling. IMPRESSION: Mildly comminuted and slightly impacted left humeral head fracture.
[2023-01-29 21:51] LABS: Potassium 3.9 mmol/L (3.5-5.1)
[2023-01-29] MEDS ORDERED: INSULIN -REGULAR HUMAN 50 UNIT/0.5 ML ML ONE (22:09)
[2023-01-29 22:31] VITALS: TEMP 98.2
[2023-01-29 22:33] VITALS: BP 160/76; O2SAT 100
--- NOTE | 2023-01-30 16:21 | EKG ---
Test Date: 2023-01-29 Test Time: 21:10:43 Picker: MEASUREMENT RESULTS: Intervals: Rate: 79 WA: 158 QRSD: 80 QT: 406 QTc: 465 Rutledge: P: 51 WA: 158 QRS: 3 T: 53 INTERPRETIVE STATEMENTS: Normal sinus rhythm Normal ECG Compared to ECG 08/25/2022 10:48:16 No significant changes Electronically Signed On 01-30-23 16:19:31 FEATHER EDGER by Jim Pedro
--- NOTE | 2023-02-14 15:21 | ER ---
Nurse's Notes [facility] Name: Ligia Chandler Age: 77 yrs Sex: Female : 1945 Arrival Date: 01/29/2023 Time: 20:20 Bed 24 Private MD: Diagnosis: Fracture of upper end of humerus;Dizziness and giddiness Presentation: 01/29 20:28 Chief complaint: EMS states: pt was going to the bathroom and got dizzy and fell on as6 left should and has pain there. Coronavirus screen: At this time, the client does not indicate any symptoms associated with coronavirus-19. Ebola Screen: No symptoms or risks identified at this time. Risk Assessment: Do you want to hurt yourself or someone else? Patient reports no desire to harm self or others. Onset of symptoms was January 29, 2023. 20:28 Method Of Arrival: EMS: [facility] as6 20:28 Acuity: KARINE 3 as6 20:30 Care prior to arrival: Medication(s) given: fentanyl 50mcg IV initiated. 20 GA, in the as6 right antecubital area. 20:36 Initial Sepsis Screen: Does the patient meet any 2 criteria? No. Patient's initial as6 sepsis screen is negative. Does the patient have a suspected source of infection? No. Patient's initial sepsis screen is negative. Historical: - Allergies: 20:31 Doxycycline; as6 20:31 Lisinopril; as6 20:31 Macrobid; as6 20:31 PENICILLINS; as6 20:31 Sulfa (Sulfonamide Antibiotics); as6 20:31 Zithromax; as6 - PMHx: 20:31 Diabetes - IDDM; High Cholesterol; Hypertension; as6 - Immunization history:: Client reports receiving the 2nd dose of the Covid vaccine, moderna. - Social history:: Smoking status: Patient denies any tobacco usage or history of. Screenin:37 [facility] ED Fall Risk Assessment (Adult) History of falling in the last 3 months, as6 including since admission Yes- single mechanical fall (1 pt) Score/Fall Risk Level 0 - 2 = Low Risk. Abuse screen: Denies threats or abuse. Denies injuries from another. Nutritional screening: No deficits noted. Tuberculosis screening: No symptoms or risk factors identified. Assessment: 20:37 General: Appears in no apparent distress. Behavior is calm, cooperative. Pain: as6 Complains of pain in anterior aspect of left shoulder and posterior aspect of left shoulder. Neuro: Level of Consciousness is awake, alert, obeys commands, Oriented to person, place, time, situation. Respiratory: Respiratory effort is even, unlabored. Vital Signs: 20:36 BP 176 / 58; Pulse 77; Resp 18 S; Temp 98.2(TE); Pulse Ox 99% on R/A; Weight 72.12 kg as6 (R); Height 5 ft. 3 in. (R); Pain 8/10; 21:00 BP 155 / 74; Pulse 81; Resp 18 S; Pulse Ox 98% on R/A; as6 22:00 BP 160 / 76; Pulse 81; Resp 18 S; Pulse Ox 100% on R/A; as6 20:36 Body Mass Index 28.17 (72.12 kg, 160.02 cm) as6 20:36 Pain Scale: Adult as6 ED Course: 20:20 Patient arrived in ED. vc1 20:21 Cristino Beckham MD is Attending Physician. bs3 20:28 Jethro Florentino, DAVE is Primary Nurse. as6 20:29 Triage completed. as6 20:29 Arm band placed on. as6 20:37 Bed in low position. Call light in reach. Side rails up X2. Adult w/ patient. as6 20:48 CT Head Brain wo Cont In Process Unspecified. EDMS 21:01 Shoulder Left (2 View) XRAY In Process Unspecified. EDMS 21:15 BMP Sent. as6 21:15 CBC with Diff Sent. as6 22:00 Barber Rangel MD is Referral Physician. bs3 22:25 No provider procedures requiring assistance completed. IV discontinued, intact, as6 bleeding controlled, No redness/swelling at site. Pressure dressing applied. 22:25 Sling applied to left arm. as6 Administered Medications: 22:15 Drug: Insulin Regular Human Sub-Q 10 units {Co-Signature: lg3 (Tere Leger RN).} as6 Route: Sub-Q; Site: right upper arm; 22:25 Follow up: Response: No adverse reaction as6 Medication: 20:42 VIS not applicable for this client. as6 Outcome: 22:00 Discharge ordered by . bs3 22:25 Discharged to home via wheelchair, with family. as6 22:25 Condition: stable 22:25 Discharge instructions given to patient, Instructed on discharge instructions, follow up and referral plans. Demonstrated understanding of instructions, follow-up care. 22:26 Patient left the ED. as6 Signatures: Dispatcher [employer] Jethro Trejo RN RN as6 Kimberlyn Saucedo RN RN vc1 Cristino Beckham MD MD bs3 Tere Leger RN lg3
--- NOTE | 2023-02-14 15:21 | EDPHYS ---
Physician Documentation [facility] Name: Ligia Chandler Age: 77 yrs Sex: Female : 1945 Arrival Date: 01/29/2023 Time: 20:20 Bed 24 Private MD: ED Physician Cristino Beckham HPI: 01/29 20:33 This 77 yrs old Female presents to ER via EMS with complaints of left bs3 shoulder pain. 20:33 77-year-old female history of hypertension, diabetes presents with left shoulder pain. bs3 She notes that she was about to do her hair when she became dizzy and attempted to walk out of the room but then fell she denies syncope or feeling like she was going to pass out but she thinks that the dizziness caused her to fall she notes possibly grabbing onto something she does not think she hit her head but she feels some pain between her eyes she notes that she was able to ambulate afterward she never had this sensation before she denies any numbness tingling or weakness or pain in her shoulder is moderate in intensity worse with movements better with rest. Historical: - Allergies: 20:31 Doxycycline; as6 20:31 Lisinopril; as6 20:31 Macrobid; as6 20:31 PENICILLINS; as6 20:31 Sulfa (Sulfonamide Antibiotics); as6 20:31 Zithromax; as6 - PMHx: 20:31 Diabetes - IDDM; High Cholesterol; Hypertension; as6 - Immunization history:: Client reports receiving the 2nd dose of the Covid vaccine, moderna. - Social history:: Smoking status: Patient denies any tobacco usage or history of. ROS: 20:33 Constitutional: Negative for fever, chills bs3 20:33 All other systems are negative. Exam: 20:33 Constitutional: This is a well developed, well nourished patient who is awake, alert, bs3 and in no acute distress. Head/Face: Normocephalic, atraumatic. Eyes: Pupils equal round and reactive to light, extra-ocular motions intact. Lids and lashes normal. ENT: mmm, no posterior phyarngeal erythema Neck: Trachea midline, no thyromegaly, no neck stiffness Chest/axilla: Normal chest wall appearance and motion. Nontender with no deformity. No lesions are appreciated. Cardiovascular: Regular rate and rhythm with a normal S1 and S2. 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 Cranial nerves II-XII grossly intact. Motor strength 5/5 in all extremities. Sensory grossly intact. No nystagmus normal rapid alternating movements normal [id number] 21:24 Normal sinus rhythm at [address] elevations or depressions QTc 465 no block no WPW no bs3 Brugada no epsilon wave no hocm Vital Signs: 20:36 BP 176 / 58; Pulse 77; Resp 18 S; Temp 98.2(TE); Pulse Ox 99% on R/A; Weight 72.12 kg as6 (R); Height 5 ft. 3 in. (R); Pain 8/10; 21:00 BP 155 / 74; Pulse 81; Resp 18 S; Pulse Ox 98% on R/A; as6 22:00 BP 160 / 76; Pulse 81; Resp 18 S; Pulse Ox 100% on R/A; as6 20:36 Body Mass Index 28.17 (72.12 kg, 160.02 cm) as6 20:36 Pain Scale: Adult as6 MDM: 20:21 Patient medically screened. bs3 20:33 Differential diagnosis: Anterior dislocation with fracture, Anterior dislocation bs3 without fracture, Posterior dislocation with fracture, Posterior dislocation without fracture, humeral head fracture. Data reviewed: vital signs, nurses notes, EMS record. Historians other than the Patient: EMS: Per EMS patient was hyperglycemic into the 300s and hypertensive to 200 systolic she was given 50 mics of fentanyl. Daughter/Son: Per son patient was ambulatory on scene after the incident. ED course: Patient with dizziness her NIH stroke scale is 0 currently her neurologic exam is normal but will rule out mass/intercranial hemorrhage given the fall and possible head injury will evaluate for electrolyte abnormality will check basic labs will get x-ray of her left shoulder and do screening EKG I considered stroke however her NIH is 0 I considered syncope but it seems less syncope and more vertigo. 21:26 Independent interpretation of the following test(s) in the Emergency Department X-Ray: bs3 My interpretation is Consistent with humeral head fracture. ED course: On further history patient notes 2 weeks of right ear pain which relieved with Motrin ear exam is normal however advise follow-up with her ENT who she saw recently for her ear pain. 21:58 ED course: Patient without DKA she does note that her sugars are normally well bs3 controlled but she some sweets today we will give subcutaneous insulin advised sling and return precautions discussed with son at bedside. 01/29 20:32 Order name: CBC with Diff; Complete Time: 21:44 bs3 01/29 20:32 Order name: BMP; Complete Time: 21:55 bs3 01/29 20:32 Order name: CT Head Brain wo Cont; Complete Time: 21:44 bs3 01/29 20:32 Order name: Shoulder Left (2 View) XRAY; Complete Time: 21:44 bs3 01/29 20:32 Order name: EKG - Nurse/Tech; Complete Time: 21:15 bs3 01/29 21:59 Order name: Sling; Complete Time: 22:22 bs3 Administered Medications: 22:15 Drug: Insulin Regular Human Sub-Q 10 units {Co-Signature: lg3 (Tere Leger RN).} as6 Route: Sub-Q; Site: right upper arm; 22:25 Follow up: Response: No adverse reaction as6 Disposition Summary: 01/29/23 22:00 Discharge Ordered Location: Home bs3 Problem: new bs3 Symptoms: have improved bs3 Condition: Stable bs3 Diagnosis - Fracture of upper end of humerus bs3 - Dizziness and giddiness bs3 Followup: bs3 - With: Private Physician - When: 5 - 6 days - Reason: Re-evaluation by your physician Followup: bs3 - With: Barber Rangel MD - When: 1 week - Reason: Recheck today's complaints Discharge Instructions: - Discharge Summary Sheet bs3 - Vertigo, [id number] bs3 - Humerus Fracture Rehab bs3 Forms: - Medication Reconciliation Form bs3 - Thank You Letter bs3 - Antibiotic Education bs3 - Prescription Opioid Use bs3 Signatures: Dispatcher [employer] Jethro Trejo RN RN as6 Cristino Beckham MD MD bs3 Tere Leger RN lg3
== END 2023-01-29 22:26 | disposition home or self-care (01) ==
LOC: ER 19:44
DX: S42.202A Unspecified fracture of upper end of left humerus, initial encounter for closed fracture (principal); R42 Dizziness and giddiness; E11.9 Type 2 diabetes mellitus without complications; I10 Essential (primary) hypertension; Z88.0 Allergy status to penicillin; Z88.1 Allergy status to other antibiotic agents; Z88.2 Allergy status to sulfonamides; Z88.8 Allergy status to other drugs, medicaments and biological substances
CPT/HCPCS: 93005; 85025; 80048; 36415; 70450; 73030; 96372; 99284; J1815

== ENCOUNTER 2025-08-31 06:00 | Inpatient (IN) | payer OTHER ==
[2025-08-30 15:07] LABS: Absolute Lymphocytes (CBC) 1.7 K/uL (0.7-4.9); Hematocrit 34.4 % (36.0-45.0); Hemoglobin 11.3 g/dL (12.0-15.0); MCH 31.0 pg (27.0-35.0); MCHC 32.9 g/dL (32.0-36.0); MCV 94.3 fL (80-100); MPV 8.4 fL (7.6-11.3); Nucleated RBC Absolute Count 0.0 (0-0); Nucleated Red Blood Cells % 0.0 % (0-0); RBC Red Blood Cell Count 3.65 M/uL (3.86-4.86); White Blood Count 8.00 thou/uL (4.3-10.9)
[2025-08-30 15:15] LABS: PT Prothrombin Time 11.4 SECONDS (10-13.0); PTT, Activated Partial Thromb 29.1 SECONDS (27.2-37.4); Protime INR 1.01
--- NOTE | 2025-08-30 15:19 | RAD REPORT ---
EXAM: Chest Pa And Lat (2 Views) HISTORY: 80 years Female pre procedure COMPARISON: 08/25/2022 FINDINGS: LUNGS/PLEURA: The lungs are clear. No pleural effusions or pneumothorax. No pulmonary edema. CARDIAC/MEDIASTINUM: The cardiac silhouette is within normal limits. UPPER ABDOMEN: No significant abnormality. BONES: No acute abnormality. LINES/TUBES/OTHER: N/A IMPRESSION: No evidence of acute cardiopulmonary disease.
[2025-08-30 15:20] LABS: Anion Gap 9.3 mEq/L (5.0-15.0); BUN Blood Urea Nitrogen 22.0 mg/dL (7-18); Glucose Level 221.0 mg/dL (74-106); Potassium 4.3 mEq/L (3.5-5.1)
[2025-08-31] MEDS: ASPIRIN 81 MG CHEWABLE TABLET ONE (06:18)
[2025-08-31] MEDS: NA CHLORIDE 0.9% 500 ML ONE (06:18)
[2025-08-31] MEDS ORDERED: HEPA 1000U/500MLS 2,000 UNIT/1,000 ML BAG IV ONE (06:30)
[2025-08-31] MEDS ORDERED: HEPARIN 5000 UNIT/ML 1 ML VIAL ONE (06:30)
[2025-08-31] MEDS ORDERED: VERAPAMIL HCL 10 MG/4 ML VIAL IV ONE (06:30)
[2025-08-31] MEDS ORDERED: LIDOCAINE 1% 20 ML MDV ONE (06:30)
[2025-08-31] MEDS ORDERED: NITROGLYCERIN/D5W 50 MG/250 ML BTL IV ONE (06:31)
[2025-08-31] MEDS: FENTANYL CITR 100 MCG/2 ML ONE (06:34)
[2025-08-31] MEDS: MIDAZOLAM HCL 2 MG/2 ML INJ ONE (06:35)
[2025-08-31] MEDS ORDERED: HYDRALAZINE HCL 20 MG/ML VIAL ONE (07:04)
[2025-08-31] MEDS ORDERED: TICAGRELOR 90 MG TABLET PO ONE (07:36)
[2025-08-31] MEDS ORDERED: NA CHLORIDE 0.9% 500 ML ONE (08:05)
[2025-08-31] MEDS ORDERED: NITROGLYCERIN 0.4 MG/TAB SL ONE (08:16)
[2025-08-31] MEDS: HEPA 1000U/500MLS 1,000 UNIT/500 ML BAG IV ONE (09:42)
[2025-08-31] MEDS ORDERED: HEPARIN/D5W 25,000 UNIT/500 ML BAG IV SCH (09:45)
[2025-08-31] MEDS ORDERED: ONDANSETRON 4 MG/2 ML VIAL IV PRN (11:35)
[2025-08-31] MEDS ORDERED: MORPHINE 2 MG/ML SYR IV PRN (11:35)
--- NOTE | 2025-08-31 11:57 | P.HP ---
Certification for Inpatient Patient admitted to: Observation With expected LOS: <2 Midnights Patient will require the following post-hospital care: None Practitioner: I am a practitioner with admitting privileges, knowledge of patient current condition, hospital course, and medical plan of care. Services: Services provided to patient in accordance with Admission requirements found in Title 42 Section 412.3 of the Code of Federal Regulations Patient History Date of Service: 08/31/25 Reason for admission: CAD History of Present Illness: Patient 80-year-old female who came to the hospital with positive stress test. Patient had a cardiac catheterization performed. Patient required stent of the LAD. Patient be monitored in ICU overnight. Otherwise, patient denies any new complaints. She feels well and she will be monitored overnight for any cardiac or respiratory complications. Allergies azithromycin [From Zithromax] Allergy (Verified 08/30/25 14:09) Rash lisinopril Allergy (Verified 08/30/25 14:09) Rash nitrofurantoin [From Macrobid] Allergy (Verified 08/30/25 14:09) Rash nitrofurantoin macrocrystal [From Macrobid] Allergy (Verified 08/30/25 14:09) Rash Penicillins Allergy (Verified 08/30/25 14:09) Rash Sulfa (Sulfonamide Antibiotics) Allergy (Verified 08/30/25 14:09) Rash Doxycycline Allergy (Uncoded 08/30/25 14:09) Unknown Home Medications: Aspirin [Low Dose Aspirin EC] 81 mg PO DAILY 06/24/18 Cyanocobalamin [Vitamin B-12*] 1,000 mcg PO DAILY 06/24/18 Fenofibrate,Micronized [Fenofibrate] 134 mg PO DAILY 06/24/18 Insulin Degludec [Tresiba Flextouch U-200] See Rx Instructions .ROUTE .COMPLEX 06/24/18 Metformin HCl 1,000 mg PO BID 06/24/18 Metoprolol Tartrate [Lopressor*] 50 mg PO BIDWM 06/24/18 Rosuvastatin [Crestor*] 10 mg PO DAILY 06/24/18 Cetirizine HCl [Zyrtec*] 10 mg PO BEDTIME 08/25/22 Ergocalciferol (Vitamin D2) [Vitamin D2] 1.25 mg PO DIRECTED 08/25/22 Fluticasone Propionate [Flonase Allergy Relief] 2 spray NS DAILY 08/25/22 Montelukast Sodium [Singulair] 10 mg PO BEDTIME 08/25/22 Multivit-Min/Iron/Folic Acid/K [One Daily Women's Multivitamin] 1 tab PO DAILY 08/25/22 Prolia 60 mg SQ DIRECTED 08/25/22 glipiZIDE [Glucotrol*] 5 mg PO DAILY 08/25/22 hydroCHLOROthiazide [Hydrochlorothiazide*] 12.5 mg PO DAILY 08/25/22 icosapent ethyL [Vascepa 1 gm Cap] 1 tab PO BID 08/25/22 - Past Medical/Surgical History Diabetic: Yes -: Diabetes mellitus type 2 2009 -: Coronary artery disease, stent 2014, Cardiology-Dr. Gerber -: Hypertension -: Hyperlipidemia -: GERD with hiatal hernia -: Cholecystectomy -: Hysterectomy -: Cardiac Stent placement Psychosocial/ Personal History: She is 50 years, has 2 children, she is retired. - Family History Mother Medical History: Heart disease, Cancer Notes: breast Cancer; bone cancer Father Medical History: Heart disease - Social History Smoking Status: Former smoker Alcohol use: No CD- Drugs: No Caffeine use: Yes Review of Systems 10-point ROS is otherwise unremarkable Physical Examination - Vital Signs Temperature: 97.9 F Blood Pressure: 131/53 Pulse: 64 Respirations: 16 - Physical Exam General: Alert, In no apparent distress, Oriented x3 HEENT: Atraumatic, PERRLA, Mucous membr. moist/pink, EOMI, Sclerae nonicteric Neck: Supple, 2+ carotid pulse no bruit, No LAD, Without JVD or thyroid abnormality Respiratory: Clear to auscultation bilaterally, Normal air movement Cardiovascular: Regular rate/rhythm, Normal S1 S2 Gastrointestinal: Normal bowel sounds, Soft and benign, Non-distended, No tenderness Musculoskeletal: No clubbing, No swelling, No tenderness Integumentary: No rashes Neurological: Normal gait, Normal speech, Normal strength at 5/5 x4 extr, Normal tone, Sensation intact, Cranial nerves 3-12 intact, Normal affect Lymphatics: No axilla or inguinal lymphadenopathy - Studies Laboratory Data (last 24 hrs) 08/30/25 08/30/25 08/30/25 14:40 14:40 14:40 WBC 8.00 Hgb 11.3 L Hct 34.4 L Plt Count 355 PT 11.4 INR 1.01 APTT 29.1 Sodium 142 Potassium 4.3 BUN 22 H Creatinine 1.01 Glucose 221 H Assessment & Plan - Problems (Diagnosis) (1) Presence of stent in LAD coronary artery Current Visit: Yes Status: Acute (2) Diabetes mellitus Onset Date: 05/31/16 Current Visit: No Status: Chronic Qualifiers: (3) Hyperlipidemia Onset Date: 05/31/16 Current Visit: No Status: Chronic Qualifiers: (4) Hypertension Onset Date: 05/31/16 Current Visit: No Status: Chronic - Plan -High-sensitivity troponin -Cardiology consultation appreciated -Continue antiplatelet therapy with aspirin and Brilinta; monitor in ICU overnight and if patient does well anticipate discharge. -Strict blood pressure and blood sugar control Discharge Plan: Home Plan to discharge in: Greater than 2 days - Advance Directives Does patient have a Living Will: No Does patient have a Durable POA for Healthcare: No - Code Status/Comfort Care Code Status Assessed: Yes Code Status: Full Code Critical Care: No Time Spent Managing PTS Care (In Minutes): 45
[2025-08-31 13:23] VITALS: BMI 28.3
--- OUTSIDE RECORDS SUMMARY | 2025-08-31 13:27 | XMS REPORT | Continuity of Care Document ---
Author Name Unknown Address [address] [facility] [address] [place] [address] Organization [facility] Address [address] [facility]. 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 Name Role Phone SADIQ GREEN Primary Care Physician Unavail able JOSE ROLLINS Attending Clinician UnavailJose Salomon Attending Clinician [phone] WILMER LOPEZ Attending Clinician Unavailable WILMER LOPEZ Attending Clinician Unavailable JARAD FENG Attending Clinician Unavail able JARAD FENG Attending Clinician Unavail able Jarad Feng MD Attending Clinician [phone] PATRICIO MOREAU Attending Clinician Unavailable Patricio Moreau MD Attending Clinician [phone] Doctor Unassigned, [place] Attending Clinician U navailable SADIQ GREEN Attending Clinician UnavailSadiq Lyons MD Attending Clinician [phone] Jose-Seferinoo_A_AH Attending Clinician Unavailable WILMER LOPEZ Admitting Clinician Unavailable JARAD FENG Admitting Clinician Unavail able PATRICIO MOREAU Admitting Clinician Unavailable SADIQ GREEN Admitting Clinician Unavailmelinda Garcia-Mbayo_A_AH Admitting Clinician Unavailable Payers Payer Name Policy Type Policy Number Effective Date Expirati on Date Source [employer] MCARE ADV CHOICE PPO [id number] 2023 00:00:00 [facility] (MEDICARE REPLACEMENT/ADVANT AGE - HMO) [id number] 2019 00:00:00 Problems Condition Name Condition Details Condition Category Status Onset Date Resolution Date Last Treatment Date Treating Clinician Comments Source Type 2 diabetes mellitus Type 2 Diabetes Mellitus Problem Active 03-13 00:00: 00 [facility] Hyperlipid emia Hyperlipid emia Problem Active 03-13 00:00: 00 [facility] Essential hypertensi on Essential Hypertensi on Problem Active 03-13 00:00: 00 [facility] Gastroesop hageal reflux disease Gastroesop hageal Reflux Disease Problem Active 03-13 00:00: 00 [facility] Allergies, Adverse Reactions, Alerts Allergy Name Allergy Type Status Severity Reaction(s) Onset Date Inactive Date Treating Clinician Comments Source SULFA (SULFONA MIDE ANTIBIOT ICS) Drug Class Active Other-Cmnt 12-13 00:00: 00 [facility] PENICILL INS Drug Class Active Other-Cmnt 12-13 00:00: 00 [facility] Penicill ins Propensi ty to adverse reaction s Active Other - See comments 12-13 00:00: 00 "I dont know" [facility] Sulfa (Sulfona mide Antibiot ics) Propensi ty to adverse reaction s Active Other - See comments 12-13 00:00: 00 "I dont know" [facility] Amoxicil demi Allergy to substanc e Active Moderate to severe Hives [facility] Macrobid Allergy to substanc e Active Moderate to severe Hives [facility] SULFA (SULFONA MIDE ANTIBIOT ICS) Allergy to substanc e Active Moderate to severe Hives [facility] ZITHROMA X Z-MERA Allergy to substanc e Active Moderate to severe Hives [facility] NO KNOWN ALLERGIE S Drug Class Active [facility] Social History Social Habit Start Date Stop Date Quantity Comments Source [facility] Social function 2023-12-16 00:00:00 2023-12-16 00:00:00 [facility] Tobacco use and exposure 2023-12-16 00:00:2023-12-16 00:00:00 Smokeless tobacco non-user [facility] Exposure to SARS-CoV-2 (event) 2023-02-15 00:00:00 2023-02-25 10:32:00 Not sure [facility] Sex assigned at 1945 00:00:00 1945 00:00:00 [facility] Smoking Status Start Date Stop Date Source Tobacco smoking consumption unknown [facility] Never smoked tobacco [facility] Medications Ordered Medication Name Filled Medication Name Start Date Stop Date Current Medication? Ordering Clinician Indication Dosage Frequency Signature (SIG) Comments Components Source acetaminoph en (TYLENOL) tablet 975 mg 05-21 00:15: 00 05-20 23:36 :00 No [id number] 975mg 975 mg, Oral, ONCE, 1 dose, On Fri05/20/24 at 1915, Routine [facility] aspirin 81 mg EC tablet 05-20 17:32: 27 Yes 1 (one) time each day [facility] promethazin e-dextromet horphan 6.25-15 mg/5 mL syrup 05-20 00:00: 00 Yes [id number] 5mL Take 5 mL by mouth 4 (four) times daily as needed for Cough. [facility] cefdinir 300 mg capsule 05-20 00:00: 00 05-28 04:59 :00 No [id number] 300mg Take 1 capsule by mouth every 12 (twelve) hours for 7 days. [facility] TRESIBA FLEXTOUCH U-200 200 unit/mL (3 mL) InPn 04-16 00:00: 00 Yes 28U inject 28 Units under the skin. [facility] gadoteridol (PROHANCE-1 5 mL) injection 0.2 mL/kg 12-30 15:15: 00 12-30 15:28 :00 No [id number] .2mL/kg 0.2 mL/kg, Intravenou s, ONCE, 1 dose, On Fri12/30/23 at 0915, Routine [facility] NaCl 0.9% (NS) bolus infusion 500 mL 12-14 01:45: 00 12-14 02:31 :00 No 500mL at 999 mL/hr, 500 mL, IV Infusion, ONCE, 1 dose, On 12/13/23 at 1945, STAT [facility] nortriptyli ne 25 mg capsule 02-21 00:00: 00 Yes [id number] 25mg Take 1 capsule by mouth at bedtime. [facility] rosuvastati n 10 mg tablet 02-19 00:00: 00 Yes 10mg Take 1 tablet by mouth in the morning. [facility] meclizine 25 mg tablet 02-18 00:00: 00 Yes TAKE 1 TABLET BY MOUTH EVERY 8 HOURS NEEDED FOR DIZZINESS FOR UP TO 7 DAYS [facility] losartan 25 mg tablet 02-13 00:00: 00 Yes 25mg Take 1 tablet by mouth in the morning. [facility] metoprolol tartrate 50 mg tablet 01-25 00:00: 00 Yes 50mg Take 1 tablet by mouth every morning and evening. [facility] PROLIA 60 mg/mL injection 01-24 00:00: 00 Yes INJECT 1ML (60MG DOSE) SUBCUTANEO USLY EVERY 6 MONTHS. [facility] montelukast 10 mg tablet 01-24 00:00: 00 Yes TAKE 1 TABLET BY MOUTH ONCE DAILY AT NIGHT [facility] codeine-gua ifenesin 10-100 mg/5 mL oral solution 01-24 00:00: 00 05-20 00:00 :00 No TAKE 5 ML BY MOUTH THREE TIMES DAILY NEEDED FOR COUGH [facility] fenofibrate micronized 134 mg capsule 01-10 00:00: 00 Yes [facility] metFORMIN 1,000 mg tablet 01-10 00:00: 00 Yes [facility] ergocalcife rol, vitamin d2, 1,250 mcg (50,000 unit) capsule 2022-1 2-16 00:00: 00 Yes [id number] Take 1 capsule by mouth weekly. [facility] B12 1 tab daily B12 1 tab daily No B12 1 tab daily [facility] Flonase Allergy Relief 50 mcg/actuati on nasal spray,suspe nsion [place] 1 spray every day by intranasal route. Flonase Allergy Relief 50 mcg/actuati on nasal spray,suspe nsion [place] 1 spray every day by intranasal route. No 1spray( s) Q1D Flonase Allergy Relief 50 mcg/actuat ion nasal spray,susp ension [place] 1 spray every day by intranasal route. [facility] glimepiride 4 mg tablet Take 1 tablet every day by oral route. glimepiride 4 mg tablet Take 1 tablet every day by oral route. No 1 Q1D glimepirid e 4 mg tablet Take 1 tablet every day by oral route. [facility] hydrochloro thiazide 12.5 mg capsule Take 1 capsule every day by oral route. hydrochloro thiazide 12.5 mg capsule Take 1 capsule every day by oral route. No 1capsul e(s) Q1D hydrochlor othiazide 12.5 mg capsule Take 1 capsule every day by oral route. [facility] metoprolol succinate ER 50 mg tablet,exte nded release 24 hr Take 1 tablet every day by oral route. metoprolol succinate ER 50 mg tablet,exte nded release 24 hr Take 1 tablet every day by oral route. No 1 Q1D metoprolol succinate ER 50 mg tablet,ext ended release 24 hr Take 1 tablet every day by oral route. [facility] rosuvastati n 10 mg tablet Take 1 tablet every day by oral route. rosuvastati n 10 mg tablet Take 1 tablet every day by oral route. No 1 Q1D rosuvastat in 10 mg tablet Take 1 tablet every day by oral route. [facility] Tresiba U-100 Insulin 100 unit/mL subcutaneou s solution Inject 1 unit by subcutaneou s route. Tresiba U-100 Insulin 100 unit/mL subcutaneou s solution Inject 1 unit by subcutaneou s route. No 1unit(s ) Tresiba U-100 Insulin 100 unit/mL subcutaneo us solution Inject 1 unit by subcutaneo us route. [facility] Vascepa 1 gram capsule Take 2 capsules twice a day by oral route. Vascepa 1 gram capsule Take 2 capsules twice a day by oral route. No 2capsul e(s) BID Vascepa 1 gram capsule Take 2 capsules twice a day by oral route. [facility] Vital Signs Vital Name Observation Time Observation Value Comments Dalia mai Systolic blood pressure 2024-05-20 22:39:00 160 mm[Hg] [facility] Diastolic blood pressure 2024-05-20 22:39:00 78 mm[Hg] [facility] Heart rate 2024-05-20 22:38:00 76 /min [facility] Body temperature 2024-05-20 22:38:00 38.11 Amanda [facility] Respiratory rate 2024-05-20 22:38:00 18 /min [facility] Body weight 2024-05-20 22:38:00 74.39 kg [facility] BMI 2024-05-20 22:38:00 29.05 kg/m2 [facility] Oxygen saturation in Arterial blood by Pulse oximetry 2024-05-20 22:38:00 95 /min [facility] Systolic blood pressure 2024-05-03 07:00:00 186 mm[Hg] [facility] Diastolic blood pressure 2024-05-03 07:00:00 81 mm[Hg] [facility] Heart rate 2024-05-03 07:00:00 78 /min [facility] Respiratory rate 2024-05-03 07:00:00 18 /min [facility] Oxygen saturation in Arterial blood by Pulse oximetry 2024-05-03 07:00:00 97 /min [facility] Body temperature 2024-05-03 05:16:00 37 Amanda [facility] Body height 2024-05-03 05:16:00 160 cm [facility] Body weight 2024-05-03 05:16:00 72.576 kg [facility] BMI 2024-05-03 05:16:00 28.34 kg/m2 [facility] Systolic blood pressure 2024-01-06 18:01:00 187 mm[Hg] [facility] Diastolic blood pressure 2024-01-06 18:01:00 74 mm[Hg] [facility] Heart rate 2024-01-06 17:47:00 68 /min [facility] Respiratory rate 2024-01-06 17:47:00 18 /min [facility] Body height 2024-01-06 17:47:00 160 cm Univ [facility] Body weight 2024-01-06 17:47:00 74.118 kg Univ [facility] BMI 2024-01-06 17:47:00 28.95 kg/m2 [facility] Oxygen saturation in Arterial blood by Pulse oximetry 2024-01-06 17:47:00 98 /min [facility] Systolic blood pressure 2023-12-16 21:36:00 165 mm[Hg] [facility] Diastolic blood pressure 2023-12-16 21:36:00 77 mm[Hg] [facility] Heart rate 2023-12-16 20:46:00 64 /min [facility] Respiratory rate 2023-12-16 20:46:00 18 /min [facility] Body height 2023-12-16 20:46:00 160 cm [facility] Body weight 2023-12-16 20:46:00 75.161 kg [facility] BMI 2023-12-16 20:46:00 29.35 kg/m2 [facility] Oxygen saturation in Arterial blood by Pulse oximetry 2023-12-16 20:46:00 99 /min [facility] Systolic blood pressure 2023-12-14 02:12:00 173 mm[Hg] [facility] Diastolic blood pressure 2023-12-14 02:12:00 90 mm[Hg] [facility] Heart rate 2023-12-14 02:12:00 74 /min [facility] Body temperature 2023-12-14 02:12:00 36.89 Amanda [facility] Respiratory rate 2023-12-14 02:12:00 19 /min [facility] Oxygen saturation in Arterial blood by Pulse oximetry 2023-12-14 02:12:00 98 /min [place] [facility] Body height 2023-12-13 22:33:00 160 cm [facility] Body weight 2023-12-13 22:33:00 72.576 kg [facility] BMI 2023-12-13 22:33:00 28.34 kg/m2 [facility] Systolic blood pressure 2023-02-21 14:10:00 112 mm[Hg] [facility] Diastolic blood pressure 2023-02-21 14:10:00 51 mm[Hg] [facility] Heart rate 2023-02-21 14:10:00 57 /min [facility] Body height 2023-02-21 14:10:00 161.3 cm [facility] Height 2020-06-19 00:00:00 63 [in_i] [facility] BMI (Body Mass Index) 2020-06-19 00:00:00 28.5 kg/m2 [facility] Body Weight 2020-06-19 00:00:00 161 [lb_av] Karen dylan [facility] Procedures Procedure Date / Time Performed Performing Clinicia n Source URINE CULTURE 2024-05-20 23:34:00 Jose Rollins [facility] POCT SARS-COV-2 ANTIGEN (BINAX NOW) 2024-05-20 23:03:00 Jose Rollins [facility] POCT URINALYSIS 2024-05-20 22:42:00 Joel Sosa [facility] EKG-12 LEAD 2024-05-03 07:35:49 Wilmer Lopez [facility] MAGNESIUM 2024-05-03 05:57:00 Wilmer Lopez [facility] TROPONIN I 2024-05-03 05:57:00 Wilmer Lopez [facility] COMP. METABOLIC PANEL (15267) 2024-05-03 05:57:00 Wilmer Lopez [facility] CBC WITH DIFF 2024-05-03 05:57:00 Wilmer Lopez [facility] URINALYSIS 2024-05-03 05:57:00 Wilmer Lopez [facility] MR INTERNAL AUDITORY CANALS W WO CONTRAST 2023-12-30 15:28:28 Jarad Feng [facility] EKG-12 LEAD 2023-12-14 01:38:21 Patricio Moreau [facility] CT ANGIOGRAM HEAD 2023-12-14 00:27:00 Patricio Moreau [facility] CT ANGIOGRAM NECK 2023-12-14 00:27:00 Patricio Moreau [facility] TROPONIN I 2023-12-13 22:53:00 Patricio Moreau [facility] BASIC METABOLIC PANEL (NA, K, CL, CO2, GLUCOSE, BUN, CREATININE, CA) 2023-12-13 22:53:00 Patricio Moreau [facility] CBC WITH DIFF 2023-12-13 22:53:00 Patricio Moreau [facility] CONSENT/REFUSAL FOR DIAGNOSIS AND TREATMENT 2023-12-13 22:28:46 Doctor Unassigned, [place] [facility] CT HEAD WO CONTRAST 2023-02-25 16:38:30 Bill Feng [facility] REFERRAL- REQUEST/RESPONSE 2023-02-18 05:01:00 Doctor Unassigned, [place] [facility] ASSIGNMENT OF BENEFITS 2022-01-24 16:04:26 Docto r Unassigned, [place] [facility] Plan of Care Planned Activity Planned Date Details Comments Source Instructions [facility] Encounters Start Date/Time End Date/Time Encounter Type Admission Type Attending Clinicians Care Facility Care Department Encounter ID Source 2024-05-20 17:40:00 2024-05-20 18:27:53 Outpatient R JOSE ROLLINS [place] [id number] [facility] 2024-05-20 17:40:00 2024-05-20 18:27:53 Urgent Care Jose Rollins [facility]?KEILYJillian [facility] 1.2840.114 350.1.13.10 4.2.7.2.686 [id number] [facility] 2024-05-03 00:11:00 2024-05-03 02:49:00 Emergency X WILMER LOPEZ WAK[facility]I [facility] ERT [id number] [facility] 2024-05-03 00:11:00 2024-05-03 02:49:00 Emergency Wilmer Lopez [facility] 1.20.114 350.1.13.10 4.2.7.2.686 [id number] [facility] 2024-01-06 11:40:00 2024-01-06 12:44:54 Outpatient JARAD MOORE HOWARD [place] [id number] [facility] 2024-01-06 11:40:00 2024-01-06 12:44:54 Office Visit Jarad Feng [facility] 1.84.114 350.1.13.10 4.2.7.2.686 [id number] [facility] 2023-12-30 07:43:45 2023-12-30 23:59:00 Outpatient JARAD MOORE HOWARD [place] [id number] [facility] 2023-12-30 07:43:45 2023-12-30 23:59:00 Hospital Encounter Jarad Feng [facility] 1.284.114 350.1.13.10 4.2.7.2.686 [id number] [facility] 2023-12-22 00:00:00 2023-12-22 00:00:00 Telephone Ping Jarad [facility] 1.284.114 350.1.13.10 4.2.7.2.686 [id number] [facility] 2023-12-16 14:40:00 2023-12-16 16:21:47 Outpatient JARAD MOORE [facility] [place] [id number] [facility] 2023-12-16 14:40:00 2023-12-16 16:21:47 [facility] 1.2.840.114 350.1.13.10 4.2.7.2.686 [id number] [facility] 2023-12-13 16:34:00 2023-12-13 20:38:00 Emergency X PATRICIO MOREAU [facility] ERT [id number] [facility] 2023-12-13 16:34:00 2023-12-13 20:38:00 Emergency Patricio Moreau [facility] 1..840.114 350.1.13.10 4.2.7.2.686 [id number] [facility] 2023-03-21 10:00:00 2023-03-21 10:00:00 Outpatient JARAD MOORE [facility] [place] [id number] [facility] 2023-03-03 00:00:00 2023-03-03 00:00:00 [facility]phone [facility] 1.2.840.114 350.1.13.10 4.2.7.2.686 [id number] [facility] 2023-02-25 10:32:44 2023-02-25 23:59:00 Outpatient JARAD MOORE [facility] [place] [id number] [facility] 2023-02-25 10:25:00 2023-02-25 23:59:00 Hospital Encounter Jarad Feng [facility] 1.2.840.114 350.1.13.10 4.2.7.2.686 [id number] [facility] 2023-02-25 00:00:00 2023-02-25 00:00:00 Telephone Jarad Feng [facility] 1..840.114 350.1.13.10 4.2.7.2.686 [id number] [facility] 2023-02-21 08:40:00 2023-02-21 10:16:11 Outpatient R JARAD FENG [facility] [place] [id number] [facility] 2023-02-21 08:40:00 2023-02-21 10:16:11 Office Visit Ping Jarad [facility] 1..840.114 350.1.13.10 4.2.7.2.686 [id number] [facility] 2023-02-18 00:00:00 2023-02-18 00:00:00 Orders Only Doctor Unassigned, [place] [facility] 1.2.840.114 350.1.13.10 4.2.7.2.686 [id number] [facility] 2022-01-24 10:05:09 2022-01-24 23:59:00 Outpatient R SADIQ GREEN [place] [id number] [facility] 2022-01-24 10:00:00 2022-01-24 23:59:00 Hospital Encounter Sadiq Green [facility] 1.2.840.114 350.1.13.10 4.2.7.2.686 [id number] [facility] 2022-01-24 00:00:00 2022-01-24 00:00:00 Orders Only Doctor Unassigned, [place] [facility] 1.2.840.114 350.1.13.10 4.2.7.2.686 [id number] [facility] 2020-06-19 00:00:00 2020-06-19 00:00:00 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 P [place] - [facility] - _HOU_V@_ [place] Direct [id number] [facility] Results Test Description Test Time Test Comments Results Result Co mments Source [facility] W Specific [id number] 22:43:00* Test Item Value Reference Range Interpretation Comme nts POCT U SP GRAV (test code = 3255) 1.025 mg/dl 1.005-1.025 POCT PH U (test code = 3254) 5 mg/dl 5-8 POCT U LEUK EST (test code = 3263) + Negative - Negative POCT U NIT (test code = 3262) pos Negative - Negati ve POCT U PROT (test code = 3259) trace Negative - Negative POCT U GLU (test code = 3256) 250 Negative - Negati ve POCT U KETONE (test code = 3258) neg Negative - Negative POCT U UROBILI (test code = 3260) neg 0.2-1 POCT U BILI (test code = 3261) neg Negative - Negative POCT U BLD (test code = 3257) trace Negative - Negati ve POCT U COLOR (test code = 3266) yellow POCT U APPEAR (test code = 3267) cloudy Lab Interpretation (test cod e = 81106-5) Abnormal [facility] [id number] 06:53:23* Test Item Value Reference Range Interpretation Comme nts TROPONIN I (test code = 6695554022) 0.022 ng/mL <=0.034 BENNETT (test code = BENNETT) Reference (Normal) Range (defined by the 99th percentile reference limit): <= 0.034 ng/mL Note: Cardiac troponin begins to rise 3-4 hours after the onset of ischemia. Repeat in 4-6 hours if the sample was drawn within 3-4 hours of the onset of the symptom and found normal. Diagnosis of myocardial injury is made with acute changes in cTn concentrations with at least one serial sample above the 99th percentile upper reference limit (URL), taken together with the patient's clinical presentation. Biotin has been reported to cause a negative bias, interpret results relative to patient's use of biotin. Lab Interpretation (test code = 55700-4) Normal [facility]. Metabolic Panel (07083)2024-05-03 06:41:45* Test Item Value Reference Range Interpretation Comme nts NA (test code = 7631619191) 137 mmol/L 135-145 K (test code = 1262173352) 4.4 mmol/L 3.5-5.0 CL (test code = 4547404699) 106 mmol/L 98-108 CO2 TOTAL (test code = 5778118204) 20 mmol/L 23-31 L AGAP (test code = 0994136362) 11 2-16 BUN (test code = 3241934808) 21 mg/dL 7-23 GLUCOSE (test code = 7860651600) 264 mg/dL 70-110 H CREATININE (test code = 2160-0) 0.71 mg/dL 0.50-1.04 TOTAL BILI (test code = 7336733093) 0.4 mg/dL 0.1-1.1 CALCIUM (test code = 2332972381) 9.0 mg/dL 8.6-10.6 T PROTEIN (test code = 1532537848) 6.6 g/dL 6.3-8.2 ALBUMIN (test code = 4718710372) 3.8 g/dL 3.5-5.0 ALK PHOS (test code = 3123584517) 51 U/L 34-122 ALTv (test code = 1742-6) 21 U/L 5-35 AST(SGOT) (test code = 0006512458) 33 U/L 13-40 eGFR (test code = 46502-0) 86.1 mL/min/1.73m2 CKD-EPI eGFR (2020). Assuming creatinine has been stable day-to-day for at least three months, the eGFR indicates Category G2 (60 - 89 mL/min/1.73 m2) Lab Interpretation (test code = 91731-9) Abnormal [facility]2024-06-10 06:41:45* Test Item Value Reference Range Interpretation Comme nts MAGNESIUM (test code = 4006761428) 1.8 mg/dL 1.7-2.4 Lab Interpretation (test cod e = 48089-2) Normal [facility] with [id number] 06:23:05* Test Item Value Reference Range Interpretation Comme nts WBC (test code = 6690-2) 8.50 4.30-11.10 RBC (test code = 789-8) 3.26 3.93-5.25 L HGB (test code = 718-7) 10.3 g/dL 11.6-15.0 L HCT (test code = 4544-3) 31.3 % 35.7-45.2 L MCV (test code = 787-2) 96.0 fL 80.6-95.5 H MCH (test code = 785-6) 31.6 pg 25.9-32.8 MCHC (test code = 786-4) 32.9 g/dL 31.6-35.1 RDW-SD (test code = 18802-6) 50.4 fL 39.0-49.9 H RDW-CV (test code = 788-0) 14.5 % 12.0-15.5 PLT (test code = 777-3) 288 166-358 MPV (test code = 36931-4) 10.7 fL 9.5-12.9 NRBC/100 WBC (test code = 8517582050) 0.0 0.0-10.0 NRBC x10^3 (test code = 2073478238) See_Comment [Automated messa ge] The system which generated this result transmitted reference range: 10*3/?L. The reference range was not used to interpret this result as normal/abnormal. GRAN MAT (NEUT) % (test code = 770-8) 71.3 % IMM GRAN % (test code = 6540862417) 0.40 % LYMPH % (test code = 736-9) 20.5 % MONO % (test code = 5905-5) 4.8 % EOS % (test code = 713-8) 2.1 % BASO % (test code = 706-2) 0.9 % GRAN MAT x10^3(ANC) (test code = 9461870474) 6.06 10*3/uL 1.88-7.09 IMM GRAN x10^3 (test code = 2240983076) 0.03 10*3/uL 0.00-0.06 LYMPH x10^3 (test code = 731-0) 1.74 10*3/uL 1.32-3.29 MONO x10^3 (test code = 742-7) 0.41 10*3/uL 0.33-0.92 EOS x10^3 (test code = 711-2) 0.18 10*3/uL 0.03-0.39 BASO x10^3 (test code = 704-7) 0.08 10*3/uL 0.01-0.07 H Lab Interpretation (test code = 83483-3) Abnormal [facility] CONTRAST 2023-12-30 17:45:20MR INTERNAL AUDITORY CANALS W WO CONTRAST COMPARISON: CT head 12/13/2023. HISTORY: Right facial droop suspect Patricia's palsy, another provider waswondering if patient suffered a stroke. ? TECHNIQUE: Multiplanar multisequence MRI of the brain was performed withand without IV gadolinium. Dedicated thin section sequences of the internalauditory canals were also performed with and without the administration ofIV gadolinium. COMPARISON: None FINDINGS: Asymmetric enhancement is noted along the right facial nerve throughout itsdistal fundal fundal, labyrinthine, geniculate, tympanic, posterior genuand mastoid segment of the right facial nerve, extending to the level ofparotid (annotated on series 14:Image 14). No definite lesion is noted inthe visualized right parotid gland. The internal auditory canals are patent without filling defects. Visualizedmastoids are unremarkable. The ventricles and cerebral sulci are prominent, suggestive of mildcerebral volume loss. No midline shift, hydrocephalusor pathologicalextra-axial fluid collection is present. The basal cisterns areunremarkable. ? No restricted diffusion is present to suggest acute infarct. Rightperiventricular T2/FLAIR hyperintensities, nonspecific, likely sequela ofprior microvascular ischemic changes. No abnormal gradient blooming. The T2 flow voids for the major intracranial vessels are unremarkable. The visualized paranasal sinuses and bilateral mastoid air cells are clear.The calvarium and superficial soft tissues are unremarkable.[facility] [id number] 00:58:32ORDERING PHYSICIAN: PATRICIO MOREAU HISTORY: Neuro deficit, acute, stroke suspected TECHNIQUE: CT images were obtained through the head and neck with IVcontrast. This examination was performed with aALARA principles. ?3-Dimages were performed for CTA. ?Maximum intensity projections (MIPs) wereperformed for CTA. The estimated degree of maximal luminal diameterstenosis is according to the NASCET standard. COMPARISON EXAMINATIONS: none available FINDINGS: The osseous structures appear intact. Lung apices appear clear. Right lobe of thyroid gland demonstrates a 13 mm low- density lesion,nonspecific. Thyroid gland appears within normal limits. The visualized aortic arch appears within normal limits. Brachiocephalic artery: Patent without evidence for significant stenosis.Right common carotid artery: Patent without evidence for significantstenosis.Right internal carotid artery: Patent withoutevidence for significantstenosis.Right vertebral artery: Patent without evidence for significant stenosis.Right subclavian artery: Patent without evidence for significant stenosis. Left common carotid artery: Patent without evidence for significantstenosis.Left internal carotid artery: Patent without evidence for significantstenosis.Left vertebral artery: Patent without evidence for significant stenosis.Left subclavian artery: Patent without evidence for significant stenosis. Right anterior cerebral artery and branches: No evidence for large vesselocclusion or aneurysm.Left anterior cerebral artery and branches: No evidence for large vesselocclusion or aneurysm. Right MCA and branches: No evidence for large vessel occlusion or aneurysm.Left MCA and branches: No evidence for large vessel occlusion or aneurysm. Basilar artery: Patent.Right posterior cerebral artery: No evidence for large vessel occlusion oraneurysm.Left posterior cerebral artery: No evidence for large vessel occlusion oraneurysm.[facility] 2023-12-14 00:58:32ORDERING PHYSICIAN: PATRICIO MOREAU HISTORY: Neuro deficit, acute, stroke suspected TECHNIQUE: CT images were obtained through the head and neck with IVcontrast. This examination was performed with aALARA principles. ?3- Dimages were performed for CTA. ?Maximum intensity projections (MIPs) wereperfo rmed for CTA. The estimated degree of maximal luminal diameterstenosis is according to the NASCET standard. COMPARISON EXAMINATIONS: none available FINDINGS: The osseous structures appear intact. Lung apices appear clear. Right lobe of thyroid gland demonstrates a 13 mm low-density lesion,nonspecific. Thyroid gland appears within normal limits. The visualized aortic arch appears within normal limits. Brachiocephalic artery: Patent without evidence for significant stenosis.Right common carotid artery: Patent without evidence for significantstenosis.Right internal carotid artery: Patent withoutevidence for significantstenosis.Right vertebral artery: Patent without evidence for significant stenosis.Right subclavian artery: Patent without evidence for significant stenosis. Left common carotid artery: Patent without evidence for significantstenosis.Left internal carotid artery: Patent without evidence for significantstenosis.Left vertebral artery: Patent without evidence for significant stenosis.Left subclavian artery: Patent without evidence for significant stenosis. Right anterior cerebral artery and branches: No evidence for large vesselocclusion or aneurysm.Left anterior cerebral artery and branches: No evidence for large vesselocclusion or aneurysm. Right MCA and branches: No evidence for large vessel occlusion or aneurysm.Left MCA and branches: No evidence for large vessel occlusion or aneurysm. Basilar artery: Patent.Right posterior cerebral artery: No evidence for large vessel occlusion oraneurysm.Left posterior cerebral artery: No evidence for large vessel occlusion oraneurysm.[facility] [id number] 00:04:03* Test Item Value Reference Range Interpretation Comme nts TROPONIN I (test code = 1074039499) 0.006 ng/mL <=0.034 BENNETT (test code = BENNETT) Reference (Normal) Range (defined by the 99th percentile reference limit): <= 0.034 ng/mL Note: Cardiac troponin begins to rise 3-4 hours after the onset of ischemia. Repeat in 4-6 hours if the sample was drawn within 3-4 hours of the onset of the symptom and found normal. Diagnosis of myocardial injury is made with acute changes in cTn concentrations with at least one serial sample above the 99th percentile upper reference limit (URL), taken together with the patient's clinical presentation. Biotin has been reported to cause a negative bias, interpret results relative to patient's use of biotin. Lab Interpretation (test code = 07095-6) Normal [facility] METABOLIC PANEL (NA, K, CL, CO2, GLUCOSE, BUN, CREATININE, CA)2023-12-13 23:52:23* Test Item Value Reference Range Interpretation Comme nts NA (test code = 3194357676) 140 mmol/L 135-145 K (test code = 8002713402) 4.8 mmol/L 3.5-5.0 CL (test code = 1462398674) 105 mmol/L 98-108 CO2 TOTAL (test code = 3516801778) 24 mmol/L 23-31 AGAP (test code = 3357567525) 11 2-16 BUN (test code = 2347010784) 28 mg/dL 7-23 H GLUCOSE (test code = 1125231165) 207 mg/dL 70-110 H CREATININE (test code = 5277380087) 0.91 mg/dL 0.50-1.04 CALCIUM (test code = 4283614473) 9.4 mg/dL 8.6-10.6 eGFR (test code = 41523-7) 64.3 mL/min/1.73m2 CKD-EPI eGFR (2020). Assuming creatinine has been stable day-to-day for at least three months, the eGFR indicates Category G2 (60 - 89 mL/min/1.73 m2) Lab Interpretation (test code = 16475-3) Abnormal [facility] [id number] 23:35:03* Test Item Value Reference Range Interpretation Comme nts WBC (test code = 6690-2) 8.90 See_Comment [Automated messa ge] The system which generated this result transmitted reference range: 4.30 - 11.10 10*3/?L. The reference range was not used to interpret this result as normal/abnormal. RBC (test code = 789-8) 3.63 See_Comment L [Automated messa ge] The system which generated this result transmitted reference range: 3.93 - 5.25 10*6/?L. The reference range was not used to interpret this result as normal/abnormal. HGB (test code = 718-7) 11.4 g/dL 11.6-15.0 L HCT (test code = 4544-3) 34.4 % 35.7-45.2 L MCV (test code = 787-2) 94.8 fL 80.6-95.5 MCH (test code = 785-6) 31.4 pg 25.9-32.8 MCHC (test code = 786-4) 33.1 g/dL 31.6-35.1 RDW-SD (test code = 73203-7) 45.1 fL 39.0-49.9 RDW-CV (test code = 788-0) 13.1 % 12.0-15.5 PLT (test code = 777-3) 381 See_Comment H [Automated messa ge] The system which generated this result transmitted reference range: 166 - 358 10*3/?L. The reference range was not used to interpret this result as normal/abnormal. MPV (test code = 45822-8) 10.4 fL 9.5-12.9 NRBC/100 WBC (test code = 2792365014) 0.0 See_Comment [Automated C4M ssage] The system which generated this result transmitted reference range: 0.0 - 10.0 /100 WBCs. The reference range was not used to interpret this result as normal/abnormal. NRBC x10^3 (test code = 7811841300) See_Comment [Automated YourPOV.TVa ge] The system which generated this result transmitted reference range: 10*3/?L. The reference range was not used to interpret this result as normal/abnormal. GRAN MAT (NEUT) % (test code = 770-8) 67.4 % IMM GRAN % (test code = 9680142122) 0.20 % LYMPH % (test code = 736-9) 24.3 % MONO % (test code = 5905-5) 4.6 % EOS % (test code = 713-8) 2.6 % BASO % (test code = 706-2) 0.9 % GRAN MAT x10^3(ANC) (test code = 2828087364) 6.00 10*3/uL 1.88-7.09 IMM GRAN x10^3 (test code = 5245434214) 0.00-0.06 LYMPH x10^3 (test code = 731-0) 2.16 10*3/uL 1.32-3.29 MONO x10^3 (test code = 742-7) 0.41 10*3/uL 0.33-0.92 EOS x10^3 (test code = 711-2) 0.23 10*3/uL 0.03-0.39 BASO x10^3 (test code = 704-7) 0.08 10*3/uL 0.01-0.07 H Lab Interpretation (test code = 08409-8) Abnormal [facility] Notes Date/Time Note Provider Source 2024-05-03 02:42:48 Pt dc'd home via WC with son. Pt v/u of dc instructions and follow up. [facility] 2024-05-03 01:16:[address] Kasey Ferrer RN [facility] 2024-05-03 01:06:29 Handoff report given to DAVE Mckeon Clara Carty RN [facility] 2024-05-03 00:14:33 Pt [facility] for HTN and headache with face tingling bilaterally. Pt had BP of 200/100 with EMS and received 10mg Labetalol and 4 zofran in route. T Brie Mcekon RN [facility] 2024-05-03 00:05:00 Associated Order(s): EKG-12 Lead ROUTINE ONCE Pre-Procedure Diagnose(s): Uncontrolled hypertension Post-Procedure Diagnose(s): Uncontrolled hypertension [facility] Emergency Department Note Patient Name: Kvng Ashby Date of : 1945 79 year old female Treatment Room: MO4/MO4 Primary Care Physician: Sadiq Green Patient Escorted by: Self [9] Mode of Arrival: EMS - [facility] [45] EMS Treatment Prior to ED Arrival: [employer] treatment: Medication (comment);Saline lock Travel and Exposure Screening: Symptoms Does patient have any of these symptoms?: (not recorded) Exposure Screening Has patient had contact with someone with a communicable disease in the last month?: (not recorded) Diseases exposed to:: (not recorded) Is Patient ?: (not recorded) Exposure Date: (not recorded) Chief Complaint: Chief Complaint Patient presents with Hypertension History of Present Illness: Kvng Ashby is a 79 year old female with numerous medical conditions as listed below who presents to the ED for evaluation of elevated blood pressure measurements. Also reports mild global headache. No focal weakness. No visual changes. No mental state changes Hypertension Onset quality: Gradual Duration: 2 hours Timing: Sporadic Progression: Improving Chronicity: Chronic Time since last dose of antihypertensive: 2 hours Context: normal sodium, not caffeine, not medication change, not noncompliance, not OTC medications used and not stress Relieved by: None tried Worsened by: Nothing Associated symptoms: anxiety and headaches Associated symptoms: no abdominal pain, no blurred vision, no chest pain, no confusion, no dizziness, no ear pain, no epistaxis and no palpitations Risk factors: diabetes Past Medical History/Immunizations: Past Medical History: Diagnosis Date DM (diabetes mellitus) HTN (hypertension) Hypertriglyceridemia Osteoporosis Tetanus received in last 5 years: Unknown Allergies: Allergies Allergen Reactions Pcn [Penicillins] Other - See comments "I dont know" Sulfa (Sulfonamide Antibiotics) Other - See comments "I dont know" Past Social History: Tobacco Use Never smoked or used smokeless tobacco. Passive Exposure: Never Past Surgical History: No past surgical history on file. Review of Systems: Review of Systems Constitutional: Negative. HENT: Negative. Negative for ear pain and nosebleeds. Eyes: Negative. Negative for blurred vision. Respiratory: Negative. Breasts: Negative. Cardiovascular: Negative. Negative for chest pain, palpitations and leg swelling. Gastrointestinal: Negative. Negative for abdominal pain. Genitourinary: Negative. Musculoskeletal: Negative. Skin: Negative. Neurological: Positive for light-headedness and headaches. Negative for dizziness and facial asymmetry. Psychiatric/Behavioral: Negative for confusion. The patient is nervous/anxious. All other systems reviewed and are negative. Endocrine: Endocrine negative Physical Exam: ED Triage Vitals [05/03/24 0016] Weight 72.6 kg (160 lb) Actual or estimated Estimated by patient/family report Height 1.6 m (5' 3") BP (!) 195/89 Pulse 79 Resp 17 Temp 37 ?C (98.6 ?F) Temp source Oral SpO2 99 % Measured on Room air Physical Exam Vitals and nursing note reviewed. Constitutional: General: She is not in acute distress. Appearance: Normal appearance. She is well-developed and normal weight. She is not ill-appearing, toxic-appearing or diaphoretic. HENT: Head: Normocephalic and atraumatic. Nose: Nose normal. No congestion. Mouth/Throat: Mouth: Mucous membranes are moist. Pharynx: Oropharynx is clear. No oropharyngeal exudate or posterior oropharyngeal erythema. Eyes: General: No scleral icterus. Right eye: No discharge. Left eye: No discharge. Extraocular Movements: Extraocular movements intact. Conjunctiva/sclera: Conjunctivae normal. Pupils: Pupils are equal, round, and reactive to light. Neck: Thyroid: No thyromegaly. Cardiovascular: Rate and Rhythm: Normal rate and regular rhythm. Pulses: Normal pulses. Heart sounds: Normal heart sounds. No murmur heard. No friction rub. Pulmonary: Effort: Pulmonary effort is normal. No respiratory distress. Breath sounds: Normal breath sounds. No stridor. No wheezing, rhonchi or rales. Chest: Chest wall: No tenderness. Abdominal: General: Bowel sounds are normal. There is no distension. Palpations: Abdomen is soft. There is no mass. Tenderness: There is no abdominal tenderness. There is no right CVA tenderness, left CVA tenderness, guarding or rebound. Hernia: No hernia is present. Musculoskeletal: General: No swelling, tenderness, deformity or signs of injury. Normal range of motion. Cervical back: Normal range of motion and neck supple. No rigidity or tenderness. Left lower leg: Edema present. Lymphadenopathy: Cervical: No cervical adenopathy. Skin: General: Skin is warm and dry. Capillary Refill: Capillary refill takes less than 2 seconds. Coloration: Skin is not jaundiced or pale. Findings: No bruising, erythema, lesion or rash. Neurological: General: No focal deficit present. Mental Status: She is alert and oriented to person, place, and time. Cranial Nerves: No cranial nerve deficit. Sensory: No sensory deficit. Motor: No weakness or abnormal muscle tone. Coordination: Coordination normal. Gait: Gait normal. Deep Tendon Reflexes: Reflexes normal. Psychiatric: Behavior: Behavior normal. Thought Content: Thought content normal. Judgment: Judgment normal. Radiology: CT HEAD WO CONTRAST Preliminary Result EXAM: CT HEAD WO CONTRAST HISTORY: 79 years old Female with Headache, sudden, severe COMPARISON: MR brain 12/30/2021 TECHNIQUE: Helical computerized tomography of the head without IV contrast. Sagittal and coronal reformats were generated. 3-D reconstruction of the skull was performed and reviewed. FINDINGS: The ventricles and cerebral sulci are prominent, commensurate with global cerebral volume loss. No hydrocephalus, midline shift or pathological extra-axial fluid collection is present. The basal cisterns are unremarkable. There is no acute intracranial hemorrhage or significant mass effect. The muir-white matter differentiation is preserved. The mastoid air cells and paranasal air sinuses are clear. The calvarium and central skull base are unremarkable. ASPECT score 10 IMPRESSION No acute intracranial abnormality. Preliminary Report Dictated by Resident: Alisha Baez Lab Results: Lab Results CBC WITH DIFF - Abnormal Result Value Ref Range WBC 8.50 4.30 - 11.10 10*3/?L RBC 3.26 (*) 3.93 - 5.25 10*6/?L HGB 10.3 (*) 11.6 - 15.0 g/dL HCT 31.3 (*) 35.7 - 45.2 % MCV 96.0 (*) 80.6 - 95.5 fL MCH 31.6 25.9 - 32.8 pg MCHC 32.9 31.6 - 35.1 g/dL RDW-SD 50.4 (*) 39.0 - 49.9 fL RDW-CV 14.5 12.0 - 15.5 % PLT 288 166 - 358 10*3/?L MPV 10.7 9.5 - 12.9 fL NRBC/100 WBC 0.0 0.0 - 10.0 /100 WBCs NRBC x10 3 <0.01 10*3/?L GRAN MAT (NEUT) % 71.3 % IMM GRAN % 0.40 % LYMPH % 20.5 % MONO % 4.8 % EOS % 2.1 % BASO % 0.9 % GRAN MAT x10 3 (ANC) 6.06 1.88 - 7.09 10*3/uL IMM GRAN x10 3 0.03 0.00 - 0.06 10*3/uL LYMPH x10 3 1.74 1.32 - 3.29 10*3/uL MONO x10 3 0.41 0.33 - 0.92 10*3/uL EOS x10 3 0.18 0.03 - 0.39 10*3/uL BASO x10 3 0.08 (*) 0.01 - 0.07 10*3/uL COMP. METABOLIC PANEL (08746) - Abnormal NA 137 135 - 145 mmol/L K 4.4 3.5 - 5.0 mmol/L CL 106 98 - 108 mmol/L CO2 TOTAL 20 (*) 23 - 31 mmol/L AGAP 11 2 - 16 BUN 21 7 - 23 mg/dL GLUCOSE 264 (*) 70 - 110 mg/dL CREATININE 0.71 0.50 - 1.04 mg/dL TOTAL BILI 0.4 0.1 - 1.1 mg/dL CALCIUM 9.0 8.6 - 10.6 mg/dL T PROTEIN 6.6 6.3 - 8.2 g/dL ALBUMIN 3.8 3.5 - 5.0 g/dL ALK PHOS 51 34 - 122 U/L ALTv 21 5 - 35 U/L AST(SGOT) 33 13 - 40 U/L eGFR 86.1 mL/min/1.73m2 URINALYSIS - Abnormal APPEARANCE Clear Clear COLOR Straw (*) Yellow PH 5.0 4.8 - 8.0 SP GRAVITY 1.006 1.003 - 1.030 GLU U QUAL 50 mg/dL (*) Normal BLOOD Negative Negative KETONES Negative Negative PROTEIN Negative Negative UROBILIN Normal Normal BILIRUBIN Negative Negative NITRITE Negative Negative LEUK TERRIE 75/uL (*) Negative RBC/HPF 0 0 - 3 HPF WBC/HPF 11 (*) 0 - 5 HPF BACTERIA Few (*) Negative SQ EPITH <1 HPF TROPONIN I - Normal TROPONIN I 0.022 <=0.034 ng/mL MAGNESIUM - Normal MAGNESIUM 1.8 1.7 - 2.4 mg/dL Orders and Treatments: Orders Placed This Encounter Procedures CT HEAD WO CONTRAST Cbc with Diff Comp. Metabolic Panel (19067) Troponin I Urinalysis Magnesium No orders of the defined types were placed in this encounter. First Provider Eval: ED Events None ED COURSE ED Course as of 06/10/24 0235 Mon May 03, 2024 0221 Discussed work-up and findings with pt. MOSQUEDA had since resolved and pt has no further complaints. Pt DECLINED abx for the UTI as she reports she is "allergic" to several abx even though she does not know the reaction to the antibiotics. She can only take Cipro and her PCP does not want her to take it unless it is ABSOLUTELY necessary [WY] ED Course User Index [WY] Wilmer Lopez MD Diagnosis/Impression as of 05/03/24 0235 Uncontrolled hypertension Headache disorder Acute cystitis without hematuria Chronic anemia Uncontrolled type 2 diabetes mellitus with hyperglycemia Procedures: EKG-12 Lead ROUTINE ONCE Date/Time: 05/03/2024 12:16 AM Performed by: Wilmer Lopez MD Authorized by: Wilmer Lopez MD ECG interpreted by ED Physician in the absence of a alignment mechanic: yes Previous ECG: Previous ECG: Compared to current Interpretation: Interpretation: normal Rate: ECG rate: 70 ECG rate assessment: normal Rhythm: Rhythm: sinus rhythm Ectopy: Ectopy: none QRS: QRS axis: Normal QRS intervals: Normal QRS conduction: normal ST segments: ST segments: Normal T waves: T waves: normal Q waves: Abnormal Q-waves: not present MDM: Medical Decision Making Kvng Ashby is a 79 year old female with numerous medical conditions as listed below who presents to the ED with elevated blood pressures and a headache Problems Addressed: Acute cystitis without hematuria: acute illness or injury Chronic anemia: chronic illness or injury Headache disorder: acute illness or injury Details: Resolved Uncontrolled hypertension: chronic illness or injury Uncontrolled type 2 diabetes mellitus with hyperglycemia: chronic illness or injury Amount and/or Complexity of Data Reviewed External Data Reviewed: ECG and notes. Labs: ordered. Decision-making details documented in ED Course. Radiology: ordered and independent interpretation performed. Decision-making details documented in ED Course. ECG/medicine tests: ordered and independent interpretation performed. Decision-making details documented in ED Course. Risk OTC drugs. Prescription drug management. Flowsheet Documentation: Scoring Tools: No data recorded Disposition/Condition: ED Disposition ED Disposition Disch - Home Condition Stable Comment -- Discharge Medications: Patient's Medications START taking these medications No medications on file CONTINUE taking these medications which have NOT CHANGED CODEINE-GUAIFENESIN 10-100 MG/5 ML ORAL SOLUTION TAKE 5 ML BY MOUTH THREE TIMES DAILY NEEDED FOR COUGH ERGOCALCIFEROL, VITAMIN D2, 1,250 MCG (50,000 UNIT) CAPSULE Take 1 capsule by mouth weekly. FENOFIBRATE MICRONIZED 134 MG CAPSULE LOSARTAN 25 MG TABLET Take 1 tablet by mouth in the morning. MECLIZINE 25 MG TABLET TAKE 1 TABLET BY MOUTH EVERY 8 HOURS NEEDED FOR DIZZINESS FOR UP TO 7 DAYS METFORMIN 1,000 MG TABLET METOPROLOL TARTRATE 50 MG TABLET Take 1 tablet by mouth every morning and evening. MONTELUKAST 10 MG TABLET TAKE 1 TABLET BY MOUTH ONCE DAILY AT NIGHT NORTRIPTYLINE 25 MG CAPSULE Take 1 capsule by mouth at bedtime. PROLIA 60 MG/ML INJECTION INJECT 1ML (60MG DOSE) SUBCUTANEOUSLY EVERY 6 MONTHS. ROSUVASTATIN 10 MG TABLET Take 1 tablet by mouth in the morning. START taking Modified Medications as Prescribed No medications on file STOP taking these medications No medications on file Follow-up: Contact information for follow-up Sadiq Green MD Specialty: IM-NEPHROLOGY Relationship: PCP - General [facility] [address] [place] [address] Steven. [address] [facility] [id number] Electronically signed by: Wilmer Lopez MD 05/03/24 0235 T [facility] 2023-12-22 11:07:01 Spoke with pt who stated she has been experiencing drainage from her eye, redness, and irritation. Educated pt that Josue eyedrops are saline eye drops after reviewing ingredients. Spoke with pt about drainage being common due to her [place] Palsy and being unable to close her eye. Advised her to use Lacri-lube under her eye to help keep a barrier on her skin so there isn't any irritation caused by the drainage. Spoke with her about corneal abrasions and that possibly causing some irritation. Pt reported she has Systane eyedrops that were recommended to her by her auto finance sales rep and was wondering if she should try those. Advised her per Dr. Feng, he had suggested saline drops. Encouraged her if irritation continues to follow up with her auto finance sales rep. Pt verbalized understanding to all. [facility] 2023-12-22 10:15:28 Kvng Ashby is a 78 year old female pt. was instructed per to buy saline for eye moisture. pt. could not find saline in stores so she used Josue pt having vision changes. pts eyes are now red, irritated, pouring liquid. pt requesting to speak to the nurse. Please advise. Maldonado [facility] 2023-12-13 20:36:36 Pt discharged with diagnosis of CVA, encouraged hydration. Printed and verbal instructions reviewed with and given to pt. Pt. verbalized understanding of teaching and recommended follow-up. Denies questions or concerns at this time. Pt ambulatory at discharge. Appears in no apparent distress. No ataxia noted. Advised to seek medical attention for new/prolonged/worsening of symptoms, Symptoms improved. No adverse reaction to meds given in ER noted upon discharge PIV d'cd, dressing to site, catheter in tact. [facility] Clara Carty RN [facility] 2023-12-13 17:03:27 Safety Note Bed low/locked, side rails up x2, call light within reach, patient verbalized understanding of how/when to use. Family members present. Clara Carty RN [facility] 2023-12-13 16:31:41 Pt to ED CO R sided facial droop since and frontal headache starting today. No episode of slurred speech/weakness. No drift, gait even and steady with cane (baseline), no blurred vision, research contracts supervisor strength equal. Provider at chairside in triage. Hx of fall causing slight decreased ROM to L arm. [facility] 2023-12-13 16:28:00 Associated Order(s): EKG-12 Lead ROUTINE ONCE Pre-Procedure Diagnose(s): Cerebrovascular accident (CVA), unspecified mechanism Post-Procedure Diagnose(s): Cerebrovascular accident (CVA), unspecified mechanism [facility] Emergency Department Note Patient Name: Kvng Ashby Date of : 1945 78 year old female Treatment Room: [place] [address] Primary Care Physician: No primary care provider on file. Patient Escorted by: Family [5] Mode of Arrival: Personal means [1] EMS Treatment Prior to ED Arrival: SENIOR RECRUITMENT CONSULTANT treatment: None Travel and Exposure Screening: Symptoms Does patient have any of these symptoms?: (not recorded) Exposure Screening Has patient had contact with someone with a communicable disease in the last month?: (not recorded) Diseases exposed to:: (not recorded) Is Patient ?: (not recorded) Exposure Date: (not recorded) Chief Complaint: Chief Complaint Patient presents with Other Facial droop History of Present Illness: 78 yo female with HTN, DM, HLD noted during the day (2 days ago) she had right facial droop, trouble drinking from straw, feeling numb on the face, but no other weakness or numbness. Has been having some watery eyes, attributed to allergies and sinuses. Mild frontal headache as well. No falls. Daughter found out about this today and brought her to the ER now. History provided by: Patient and relative STROKE Presenting symptoms: headaches (mild frontal) and weakness (right face and tongue) Presenting symptoms: no confusion Onset quality: Sudden Last known well: 12/11/23 Timing: Constant Progression: Unchanged Similar to previous episodes: no Associated symptoms: no chest pain, no difficulty swallowing, no dizziness, no facial pain, no fall, no fever, no hearing loss, no nausea, no neck pain, no paresthesias, no seizures, no vertigo and no vomiting Past Medical History/Immunizations: Past Medical History: Diagnosis Date DM (diabetes mellitus) HTN (hypertension) Hypertriglyceridemia Osteoporosis Tetanus received in last 5 years: Unknown Childhood immunizations: Up-to-date Allergies: Allergies Allergen Reactions Pcn [Penicillins] Other - See comments "I dont know" Sulfa (Sulfonamide Antibiotics) Other - See comments "I dont know" Past Social History: Tobacco Use Never smoked or used smokeless tobacco. Past Surgical History: History reviewed. No pertinent surgical history. Review of Systems: Review of Systems Constitutional: Negative for fever. HENT: Positive for postnasal drip. Negative for congestion, facial swelling, hearing loss, rhinorrhea, sore throat, trouble swallowing and voice change. Eyes: Positive for pain (right eye, but for a week now), discharge (watery right eye) and itching. Negative for redness and visual disturbance. Respiratory: Negative for cough and shortness of breath. Cardiovascular: Positive for leg swelling. Negative for chest pain and palpitations. Gastrointestinal: Negative for abdominal pain, nausea and vomiting. Genitourinary: Negative for dysuria and difficulty urinating. Musculoskeletal: Negative for back pain and neck pain. Neurological: Positive for facial asymmetry, weakness (right face and tongue) and headaches (mild frontal). Negative for dizziness, vertigo, seizures, syncope, speech difficulty and paresthesias. Psychiatric/Behavioral: Negative for agitation and confusion. Hematological: Does not bruise/bleed easily. Physical Exam: ED Triage Vitals [12/13/23 1633] Weight 72.6 kg (160 lb) Actual or estimated Estimated by patient/family report Height 1.6 m (5' 3") BP (!) 205/76 Pulse 80 Resp 16 Temp 37.5 ?C (99.5 ?F) Temp source Oral SpO2 100 % Measured on Room air Physical Exam Vitals and nursing note reviewed. Constitutional: General: She is not in acute distress. Appearance: She is not ill-appearing. HENT: Head: Normocephalic and atraumatic. No contusion or laceration. Comments: Right eye droop, right nasolabial weakness, and some right tongue deviation Ears: Comments: Mildly decreased hearing on the right compared to left to finger rub. Nose: Nose normal. Mouth/Throat: Lips: Standard. Mouth: Mucous membranes are moist. Tongue: No lesions. Tongue deviates from midline (to the right). Pharynx: Oropharynx is clear. Uvula midline. Comments: Weak to pushing tongue to the left cheek, using jaw to get tongue over.Right cheek protrusion normal, which corresponds to right sided tongue muscle weakness. Eyes: General: No visual field deficit or scleral icterus (watery eye on the right). Right eye: Discharge present. Extraocular Movements: Extraocular movements intact. Conjunctiva/sclera: Conjunctivae normal. Pupils: Pupils are equal, round, and reactive to light. Neck: Vascular: No carotid bruit. Cardiovascular: Rate and Rhythm: Normal rate and regular rhythm. Pulses: Normal pulses. Radial pulses are 2+ on the right side and 2+ on the left side. Dorsalis pedis pulses are 2+ on the right side and 2+ on the left side. Heart sounds: Normal heart sounds, S1 normal and S2 normal. No murmur heard. Pulmonary: Effort: Pulmonary effort is normal. Breath sounds: Normal breath sounds. Abdominal: General: Bowel sounds are normal. Palpations: Abdomen is soft. Tenderness: There is no abdominal tenderness. There is no rebound. Musculoskeletal: General: Normal range of motion. Cervical back: Normal range of motion and neck supple. No rigidity. Right lower le+ Pitting Edema present. Left lower le+ Pitting Edema present. Skin: General: Skin is warm. Capillary Refill: Capillary refill takes less than 2 seconds. Neurological: Mental Status: She is alert and oriented to person, place, and time. GCS: GCS eye subscore is 4. GCS verbal subscore is 5. GCS motor subscore is 6. Cranial Nerves: Cranial nerve deficit and facial asymmetry present. No dysarthria. Sensory: Sensation is intact. Motor: No weakness, tremor, abnormal muscle tone or pronator drift. Coordination: Mjhqpy-Ooye-Roywzb Test and Heel to Pittman Test normal. Radiology: CT HEAD WO CONTRAST Preliminary Result EXAM: CT HEAD WO CONTRAST HISTORY: 78 years-old Female; Provided indication: Neuro deficit, acute, stroke suspected . History obtained from [facility]: Patient presenting with right-sided facial droop and frontal headache starting today. No episodes of slurred speech/weakness. TECHNIQUE: Axial CT of the head was performed and reconstructed at 5 mm intervals. Coronal and sagittal reformatted images were generated. COMPARISON: CT head dated 02/25/2023 FINDINGS: The ventricles and sulci are prominent but within normal limits for the patient's age. No midline shift or pathological extra-axial fluid collection is present. The basal cisterns are unremarkable. No acute intracranial hemorrhage or significant mass effect is visualized. No parenchymal attenuation abnormality is seen. The muir-white matter differentiation is preserved. The mastoid air cells and paranasal air sinuses are clear. The calvarium and central skull base are unremarkable. IMPRESSION No acute intracranial abnormality. Preliminary Report Dictated by Resident: Arthur Nick CT ANGIOGRAM HEAD Final Result ORDERING PHYSICIAN: PATRICIO MOREAU HISTORY: Neuro deficit, acute, stroke suspected TECHNIQUE: CT images were obtained through the head and neck with IV contrast. This examination was performed with a ALARA principles. 3-D images were performed for CTA. Maximum intensity projections (MIPs) were performed for CTA. The estimated degree of maximal luminal diameter stenosis is according to the NASCET standard. COMPARISON EXAMINATIONS: none available FINDINGS: The osseous structures appear intact. Lung apices appear clear. Right lobe of thyroid gland demonstrates a 13 mm low-density lesion, nonspecific. Thyroid gland appears within normal limits. The visualized aortic arch appears within normal limits. Brachiocephalic artery: Patent without evidence for significant stenosis. Right common carotid artery: Patent without evidence for significant stenosis. Right internal carotid artery: Patent without evidence for significant stenosis. Right vertebral artery: Patent without evidence for significant stenosis. Right subclavian artery: Patent without evidence for significant stenosis. Left common carotid artery: Patent without evidence for significant stenosis. Left internal carotid artery: Patent without evidence for significant stenosis. Left vertebral artery: Patent without evidence for significant stenosis. Left subclavian artery: Patent without evidence for significant stenosis. Right anterior cerebral artery and branches: No evidence for large vessel occlusion or aneurysm. Left anterior cerebral artery and branches: No evidence for large vessel occlusion or aneurysm. Right MCA and branches: No evidence for large vessel occlusion or aneurysm. Left MCA and branches: No evidence for large vessel occlusion or aneurysm. Basilar artery: Patent. Right posterior cerebral artery: No evidence for large vessel occlusion or aneurysm. Left posterior cerebral artery: No evidence for large vessel occlusion or aneurysm. IMPRESSION 1. No evidence for intracranial large vessel occlusion. No evidence for hemodynamically significant carotid stenosis. 2. 13 mm low-density lesion in the right lobe of thyroid gland, nonspecific. AF: [id number] End of Report ANGIOGRAM NECK Final Result ORDERING PHYSICIAN: PATRICIO MOREAU HISTORY: Neuro deficit, acute, stroke suspected TECHNIQUE: CT images were obtained through the head and neck with IV contrast. This examination was performed with a ALARA principles. 3-D images were performed for CTA. Maximum intensity projections (MIPs) were performed for CTA. The estimated degree of maximal luminal diameter stenosis is according to the NASCET standard. COMPARISON EXAMINATIONS: none available FINDINGS: The osseous structures appear intact. Lung apices appear clear. Right lobe of thyroid gland demonstrates a 13 mm low-density lesion, nonspecific. Thyroid gland appears within normal limits. The visualized aortic arch appears within normal limits. Brachiocephalic artery: Patent without evidence for significant stenosis. Right common carotid artery: Patent without evidence for significant stenosis. Right internal carotid artery: Patent without evidence for significant stenosis. Right vertebral artery: Patent without evidence for significant stenosis. Right subclavian artery: Patent without evidence for significant stenosis. Left common carotid artery: Patent without evidence for significant stenosis. Left internal carotid artery: Patent without evidence for significant stenosis. Left vertebral artery: Patent without evidence for significant stenosis. Left subclavian artery: Patent without evidence for significant stenosis. Right anterior cerebral artery and branches: No evidence for large vessel occlusion or aneurysm. Left anterior cerebral artery and branches: No evidence for large vessel occlusion or aneurysm. Right MCA and branches: No evidence for large vessel occlusion or aneurysm. Left MCA and branches: No evidence for large vessel occlusion or aneurysm. Basilar artery: Patent. Right posterior cerebral artery: No evidence for large vessel occlusion or aneurysm. Left posterior cerebral artery: No evidence for large vessel occlusion or aneurysm. IMPRESSION 1. No evidence for intracranial large vessel occlusion. No evidence for hemodynamically significant carotid stenosis. 2. 13 mm low-density lesion in the right lobe of thyroid gland, nonspecific. [facility]: [id number] End of Report Lab Results: Lab Results CBC WITH DIFF - Abnormal Result Value Ref Range WBC 8.90 4.30 - 11.10 10*3/?L RBC 3.63 (*) 3.93 - 5.25 10*6/?L HGB 11.4 (*) 11.6 - 15.0 g/dL HCT 34.4 (*) 35.7 - 45.2 % MCV 94.8 80.6 - 95.5 fL MCH 31.4 25.9 - 32.8 pg MCHC 33.1 31.6 - 35.1 g/dL RDW-SD 45.1 39.0 - 49.9 fL RDW-CV 13.1 12.0 - 15.5 % PLT 381 (*) 166 - 358 10*3/?L MPV 10.4 9.5 - 12.9 fL NRBC/100 WBC 0.0 0.0 - 10.0 /100 WBCs NRBC x10 3 <0.01 10*3/?L GRAN MAT (NEUT) % 67.4 % IMM GRAN % 0.20 % LYMPH % 24.3 % MONO % 4.6 % EOS % 2.6 % BASO % 0.9 % GRAN MAT x10 3 (ANC) 6.00 1.88 - 7.09 10*3/uL IMM GRAN x10 3 <0.03 0.00 - 0.06 10*3/uL LYMPH x10 3 2.16 1.32 - 3.29 10*3/uL MONO x10 3 0.41 0.33 - 0.92 10*3/uL EOS x10 3 0.23 0.03 - 0.39 10*3/uL BASO x10 3 0.08 (*) 0.01 - 0.07 10*3/uL BASIC METABOLIC PANEL (NA, K, CL, CO2, GLUCOSE, BUN, CREATININE, CA) - Abnormal NA 140 135 - 145 mmol/L K 4.8 3.5 - 5.0 mmol/L CL 105 98 - 108 mmol/L CO2 TOTAL 24 23 - 31 mmol/L AGAP 11 2 - 16 BUN 28 (*) 7 - 23 mg/dL GLUCOSE 207 (*) 70 - 110 mg/dL CREATININE 0.91 0.50 - 1.04 mg/dL CALCIUM 9.4 8.6 - 10.6 mg/dL eGFR 64.3 mL/min/1.73m2 TROPONIN I - Normal TROPONIN I 0.006 <=0.034 ng/mL EKG: If EKG completed, see Procedure Note. Orders and Treatments: Orders Placed This Encounter Procedures CT HEAD WO CONTRAST CT ANGIOGRAM HEAD CT ANGIOGRAM NECK CBC WITH DIFF BASIC METABOLIC PANEL (NA, K, CL, CO2, GLUCOSE, BUN, CREATININE, CA) TROPONIN I Orders Placed This Encounter Medications NaCl 0.9% (NS) bolus infusion 500 mL First Provider Eval: ED Events Date/Time Event User Comments 12/13/23 1638 Medical Screening Begins PATRICIO MOREAU MD -- 12/13/23 163 First Provider Evaluation PATRICIO MOREAU MD -- ED COURSE ED Course as of 12/13/231937 Sat Dec 13, 2023 1909 Out of window for any interventions. Can follow up with outpatient MRI brain. Already on statin (rosuvastatin), add aspirin 81mg daily. See primary care early next week to manage blood pressure. [GR] 1906 CTA head and neck negative for occlusion or significant flow limiting stenosis. CT head no acute findings. [GR] ED Course User Index [GR] Patricio Moreau MD Diagnosis/Impression as of 12/13/231937 Cerebrovascular accident (CVA), unspecified mechanism Procedures: EKG-12 Lead ROUTINE ONCE Date/Time: 12/13/2023 4:59 PM Performed by: Patricio Moreau MD Authorized by: Patricio Moreau MD ECG interpreted by ED Physician in the absence of a alignment mechanic: yes Previous ECG: Previous ECG: Unavailable Interpretation: Interpretation: normal Rate: ECG rate: 86 ECG rate assessment: normal Rhythm: Rhythm: sinus rhythm Ectopy: Ectopy: none QRS: QRS axis: Normal QRS intervals: Normal QRS conduction: normal ST segments: ST segments: Normal T waves: T waves: normal Q waves: Abnormal Q-waves: not present MDM: Medical Decision Making Patient presents to the ER ~48 hours after onset of facial droop. Denies any other arm, leg weakness or sensory changes. Speech normal. Reports able to swallow, but trouble with lip. Tongue is involved too. Suggests CN VII and XII, so will get CT head and CTA head/neck. No luis manuel's seen on the right. Rest of neuro exam is normal. CBC, BMP, EKG, troponin, CT/CTA head/neck. Risk factors are HTN, HLD, DM. No prior stroke or [place]. CT/CTA no acute findings. Outside window. CN VII and CN XII affected. Do not suspect this is only Patricia's Palsy, and blood sugar is not significantly elevated. On a statin, takes 81mg aspirin. Continue to control this, and she will see her primary Friday (2 days), and outpatient follow up. No indication for hospitalization or further evaluation at this time. Able to walk normally (visualized by me), swallow, eat. Will discharge home.Granddaughter who brought her understands all instructions as well. Problems Addressed: Cerebrovascular accident (CVA), unspecified mechanism: acute illness or injury Amount and/or Complexity of Data Reviewed Labs: ordered. Decision-making details documented in ED Course. Radiology: ordered. Decision-making details documented in ED Course. ECG/medicine tests: ordered and independent interpretation performed. Decision-making details documented in ED Course. Risk Prescription drug management. Flowsheet Documentation: LOC: 0 Alert: Keenly Responsive LOC QUESTIONS: 0 Answers Both Questions Correctly LOC COMMANDS: 0 Performs Both Tasks Correctly BEST GAZE: 0 Normal VISUAL: 0 No Visual Loss FACIAL PALSY: 1 Minor Paralysis MOTOR ARM-LEFT: 0 No Drift MOTOR ARM-RIGHT: 0 No Drift MOTOR LEG-LEFT: 0 No Drift MOTOR LEG-RIGHT: 0 No Drift LIMB ATAXIA: 0 Absent SENSORY: 0 Normal BEST LANGUAGE: 0 No Aphasia DYSARTHRIA: 0 Normal EXTINCTION AND INATTENTION (FORMERLY NEGLECT): 0 No Abnormalty STROKE SCALE TOTAL SCORE: 1 NIH STROKE SCALE LOC: 0 Alert: Keenly Responsive LOC QUESTIONS: 0 Answers Both Questions Correctly LOC COMMANDS: 0 Performs Both Tasks Correctly BEST GAZE: 0 Normal VISUAL: 0 No Visual Loss FACIAL PALSY: 1 Minor Paralysis MOTOR ARM-LEFT: 0 No Drift MOTOR ARM-RIGHT: 0 No Drift MOTOR LEG-LEFT: 0 No Drift MOTOR LEG-RIGHT: 0 No Drift LIMB ATAXIA: 0 Absent SENSORY: 0 Normal BEST LANGUAGE: 0 No Aphasia DYSARTHRIA: 0 Normal EXTINCTION AND INATTENTION (FORMERLY NEGLECT): 0 No Abnormalty STROKE SCALE INTERVAL: Admission STROKE SCALE TOTAL SCORE: 1 STROKE SCALE INTERVAL: Admission STROKE SCALE TOTAL SCORE: 1 Was IV thrombolytic therapy given?: No Reason no IV thrombolytic therapy initiated: Arrival > 4.5 hours from symptom onset Was Endovascular Intervention Performed?: No Reason patient is not a candidate for endovascular intervention: Last known well > 24 hours;NIH less than or equal to 6 Scoring Tools: No data recorded Disposition/Condition: ED Disposition ED Disposition Disch - Home Condition Stable Comment -- Discharge Medications: Patient's Medications START taking these medications No medications on file CONTINUE taking these medications which have NOT CHANGED CODEINE-GUAIFENESIN 10-100 MG/5 ML ORAL SOLUTION TAKE 5 ML BY MOUTH THREE TIMES DAILY NEEDED FOR COUGH ERGOCALCIFEROL, VITAMIN D2, 1,250 MCG (50,000 UNIT) CAPSULE Take 1 capsule by mouth weekly. FENOFIBRATE MICRONIZED 134 MG CAPSULE LOSARTAN 25 MG TABLET Take 1 tablet by mouth in the morning. MECLIZINE 25 MG TABLET TAKE 1 TABLET BY MOUTH EVERY 8 HOURS NEEDED FOR DIZZINESS FOR UP TO 7 DAYS METFORMIN 1,000 MG TABLET METOPROLOL TARTRATE 50 MG TABLET Take 1 tablet by mouth every morning and evening. MONTELUKAST 10 MG TABLET TAKE 1 TABLET BY MOUTH ONCE DAILY AT NIGHT NORTRIPTYLINE 25 MG CAPSULE Take 1 capsule by mouth at bedtime. PROLIA 60 MG/ML INJECTION INJECT 1ML (60MG DOSE) SUBCUTANEOUSLY EVERY 6 MONTHS. ROSUVASTATIN 10 MG TABLET Take 1 tablet by mouth in the morning. START taking Modified Medications as Prescribed No medications on file STOP taking these medications No medications on file Follow-up: Contact information for follow-up Sadiq Green MD Specialty: IM-NEPHROLOGY Relationship: PCP - General [address] [place] [address] Neurologist a request for a [facility] neurologist was placed, OR one selected by your primary care. Electronically signed by: Patricio Moreau MD 12/13/231937 [facility]
[2025-08-31 14:32] VITALS: O2SAT 99
[2025-08-31] MEDS ORDERED: HYDRALAZINE HCL 20 MG/ML VIAL IV PRN (16:03)
[2025-08-31] MEDS: HYDRALAZINE HCL 20 MG/ML VIAL IV ONE (16:03)
[2025-08-31] MEDS: ACETAMINOPHEN 500 MG TAB PO PRN (18:32)
[2025-08-31] MEDS: MELATONIN 5 MG TABLET PO PRN (20:48)
[2025-08-31] MEDS: HYDRALAZINE HCL 25 MG TABLET PO SCH (20:48)
[2025-08-31] MEDS: ATORVASTATIN 40 MG TAB PO SCH (20:48)
[2025-08-31] MEDS: TICAGRELOR 90 MG TABLET PO SCH (20:48)
[2025-09-01 08:25] LABS: Absolute Lymphocytes (CBC) 1.3 K/uL (0.7-4.9); Hematocrit 33.3 % (36.0-45.0); Hemoglobin 11.6 g/dL (12.0-15.0); MCH 32.5 pg (27.0-35.0); MCHC 34.9 g/dL (32.0-36.0); MCV 93.0 fL (80-100); MPV 8.1 fL (7.6-11.3); Nucleated RBC Absolute Count 0.0 (0-0); Nucleated Red Blood Cells % 0.0 % (0-0); RBC Red Blood Cell Count 3.59 M/uL (3.86-4.86); White Blood Count 8.00 thou/uL (4.3-10.9)
[2025-09-01] MEDS: ASPIRIN 81 MG CHEWABLE TABLET PO SCH (08:27)
[2025-09-01 08:44] LABS: ALT/SGPT 27.0 U/L (13-56); Albumin 3.2 g/dL (3.4-5.0); Albumin/Globulin Ratio 0.9 (1.1-1.8); Alkaline Phosphatase 39.0 U/L (45-117); Anion Gap 10.0 mEq/L (5.0-15.0); BUN Blood Urea Nitrogen 13.0 mg/dL (7-18); Globulin 3.5 g/dL (2.3-3.5); Glucose Level 202.0 mg/dL (74-106)
[2025-09-01 08:45] LABS: AST/SGOT 59.0 U/L (15-37); Potassium 4.0 mEq/L (3.5-5.1)
--- NOTE | 2025-09-01 08:56 | P.CNS ---
Date of Consult: 09/01/25 Chief Complaint: CAD History of Present Illness: Patient with PMH of HTN, CAD s/p PCI LAD with coronary dissection and small contained perforation, was admitted to ICU for monitoring, today she feel better, denies chest pain, no breathing problems. no arrhythmia overnight and BP has been stable. Allergies azithromycin [From Zithromax] Allergy (Verified 08/30/25 14:09) Rash lisinopril Allergy (Verified 08/30/25 14:09) Rash nitrofurantoin [From Macrobid] Allergy (Verified 08/30/25 14:09) Rash nitrofurantoin macrocrystal [From Macrobid] Allergy (Verified 08/30/25 14:09) Rash Penicillins Allergy (Verified 08/30/25 14:09) Rash Sulfa (Sulfonamide Antibiotics) Allergy (Verified 08/30/25 14:09) Rash Doxycycline Allergy (Uncoded 08/30/25 14:09) Unknown Home medications list reviewed: Yes Home Medications: Aspirin [Low Dose Aspirin EC] 81 mg PO DAILY 06/24/18 Cyanocobalamin [Vitamin B-12*] 1,000 mcg PO DAILY 06/24/18 Fenofibrate,Micronized [Fenofibrate] 134 mg PO DAILY 06/24/18 Insulin Degludec [Tresiba Flextouch U-200] See Rx Instructions .ROUTE .COMPLEX 06/24/18 Metformin HCl 1,000 mg PO BID 06/24/18 Metoprolol Tartrate [Lopressor*] 50 mg PO BIDWM 06/24/18 Rosuvastatin [Crestor*] 10 mg PO DAILY 06/24/18 Cetirizine HCl [Zyrtec*] 10 mg PO BEDTIME 08/25/22 Ergocalciferol (Vitamin D2) [Vitamin D2] 1.25 mg PO DIRECTED 08/25/22 Fluticasone Propionate [Flonase Allergy Relief] 2 spray NS DAILY 08/25/22 Montelukast Sodium [Singulair] 10 mg PO BEDTIME 08/25/22 Multivit-Min/Iron/Folic Acid/K [One Daily Women's Multivitamin] 1 tab PO DAILY 08/25/22 Prolia 60 mg SQ DIRECTED 08/25/22 glipiZIDE [Glucotrol*] 5 mg PO DAILY 08/25/22 icosapent ethyL [Vascepa 1 gm Cap] 1 tab PO BID 08/25/22 Aspirin Chewable [Aspirin Chewable*] 81 mg PO DAILY #30 tab.chew 09/01/25 Atorvastatin Calcium [Lipitor] 40 mg PO BEDTIME #30 tab 09/01/25 Hydralazine [Apresoline*] 25 mg PO TID #90 tab 09/01/25 Melatonin 10 mg PO BEDTIME PRN PRN #30 09/01/25 Ticagrelor [Brilinta*] 90 mg PO BID #60 tab 09/01/25 - Past Medical/Surgical History Diabetic: Yes -: Diabetes mellitus type 2 2009 -: Coronary artery disease, stent 2014, Cardiology-Dr. Gerber -: Hypertension -: Hyperlipidemia -: GERD with hiatal hernia -: Cholecystectomy -: Hysterectomy -: Cardiac Stent placement Psychosocial/ Personal History: She is 50 years, has 2 children, she is retired. - Family History Mother Medical History: Heart disease, Cancer Notes: breast Cancer; bone cancer Father Medical History: Heart disease - Social History Alcohol use: No CD- Drugs: No Caffeine use: No Place of Residence: Home Review of Systems 10-point ROS is otherwise unremarkable Physical Examination Temp Pulse Resp BP Pulse Ox 97.1 F 66 15 139/54 L 99 09/01/25 08:00 09/01/25 08:00 09/01/25 08:00 09/01/25 08:00 09/01/25 08:00 General: Alert, In no apparent distress HEENT: Atraumatic, PERRLA, Mucous membr. moist/pink, EOMI, Sclerae nonicteric Neck: Supple, 2+ carotid pulse no bruit, No LAD, Without JVD or thyroid abnormality Respiratory: Clear to auscultation bilaterally, Normal air movement Cardiovascular: Regular rate/rhythm, Normal S1 S2 Gastrointestinal: Normal bowel sounds, No tenderness Musculoskeletal: No tenderness Integumentary: No rashes Neurological: Normal gait, Normal speech, Normal tone, Normal affect Lymphatics: No axilla or inguinal lymphadenopathy Laboratory Data (last 24 hrs) 09/01/25 09/01/25 08/31/25 08:10 08:10 23:00 WBC 8.00 Hgb 11.6 L Hct 33.3 L Plt Count 308 APTT 45.8 H Sodium 139 Potassium 4.0 BUN 13 Creatinine 0.81 Glucose 202 H Total Bilirubin 0.5 AST 59 H ALT 27 Alkaline Phosphatase 39 L 08/31/25 08/31/25 16:54 11:25 WBC Hgb Hct Plt Count APTT 73.0 H 154.7 H* Sodium Potassium BUN Creatinine Glucose Total Bilirubin AST ALT Alkaline Phosphatase - Problems (1) Coronary artery disease Onset Date: 05/31/16 Current Visit: No Status: Chronic Plan: patient is s/p PCI LAD yesterday with coronary artery dissection and contained small perforation, she is hemodynamically stable, denies any chest pain, no breathing problem. stop heparin drip continue ASA 81 mg daily Continue Brilinta 90 mg po BID Lipitor 40 mg daily outpatient follow up with cardiology. Qualifiers: Coronary Disease-Associated Artery/Lesion type: [place] artery [place] vs. transplanted heart: [place] heart Associated angina: without angina Qualified Code(s): I25.10 - Atherosclerotic heart disease of [place] coronary artery without angina pectoris (2) Hyperlipidemia Onset Date: 05/31/16 Current Visit: No Status: Chronic Plan: Lipitor 40 mg daily Qualifiers: (3) Hypertension Onset Date: 05/31/16 Current Visit: No Status: Chronic Plan: continue Hydralazine
--- NOTE | 2025-09-01 09:47 | P.DS ---
Discharge Date: 09/01/25 Disposition: ROUTINE DISCHARGE Discharge Condition: GOOD Reason for Admission: CAD - Problems (1) Presence of stent in LAD coronary artery Current Visit: Yes Status: Acute (2) Diabetes mellitus Onset Date: 05/31/16 Current Visit: No Status: Chronic Qualifiers: (3) Hyperlipidemia Onset Date: 05/31/16 Current Visit: No Status: Chronic Qualifiers: (4) Hypertension Onset Date: 05/31/16 Current Visit: No Status: Chronic Brief History of Present Illness: Patient 80-year-old female who came to the hospital with positive stress test. Patient had a cardiac catheterization performed. Patient required stent of the LAD. Patient be monitored in ICU overnight. Otherwise, patient denies any new complaints. She feels well and she will be monitored overnight for any cardiac or respiratory complications. Hospital Course: Patient is doing well post cardiac catheterization. Hemodynamically she has been doing much better with hydralazine. Will try to get home health arranged prior to discharge so they can monitor her blood pressure. At this time patient is clinically doing well and stable for discharge home. Vital Signs/Physical Exam: Temp Pulse Resp BP Pulse Ox 97.1 F 66 15 139/54 L 99 09/01/25 08:00 09/01/25 08:00 09/01/25 08:00 09/01/25 08:00 09/01/25 08:00 General: Alert, In no apparent distress, Oriented x3 Laboratory Data at Discharge: WBC 8.00 thou/uL (4.3-10.9) 09/01/25 08:10 Hgb 11.6 g/dL (12.0-15.0) L 09/01/25 08:10 Hct 33.3 % (36.0-45.0) L 09/01/25 08:10 Plt Count 308 thou/uL (152-406) 09/01/25 08:10 PT 11.4 SECONDS (10-13.0) 08/30/25 14:40 INR 1.01 08/30/25 14:40 APTT Cancelled 09/01/25 08:10 Sodium 139 mEq/L (136-145) 09/01/25 08:10 Potassium 4.0 mEq/L (3.5-5.1) 09/01/25 08:10 BUN 13 mg/dL (7-18) 09/01/25 08:10 Creatinine 0.81 mg/dL (0.55-1.02) 09/01/25 08:10 Glucose 202 mg/dL (74-106) H 09/01/25 08:10 Total Bilirubin 0.5 mg/dL (0.2-1.0) 09/01/25 08:10 AST 59 U/L (15-37) H 09/01/25 08:10 ALT 27 U/L (13-56) 09/01/25 08:10 Alkaline Phosphatase 39 U/L (45-117) L 09/01/25 08:10 Home Medications: Aspirin [Low Dose Aspirin EC] 81 mg PO DAILY 06/24/18 Cyanocobalamin [Vitamin B-12*] 1,000 mcg PO DAILY 06/24/18 Fenofibrate,Micronized [Fenofibrate] 134 mg PO DAILY 06/24/18 Insulin Degludec [Tresiba Flextouch U-200] See Rx Instructions .ROUTE .COMPLEX 06/24/18 Metformin HCl 1,000 mg PO BID 06/24/18 Metoprolol Tartrate [Lopressor*] 50 mg PO BIDWM 06/24/18 Rosuvastatin [Crestor*] 10 mg PO DAILY 06/24/18 Cetirizine HCl [Zyrtec*] 10 mg PO BEDTIME 08/25/22 Ergocalciferol (Vitamin D2) [Vitamin D2] 1.25 mg PO DIRECTED 08/25/22 Fluticasone Propionate [Flonase Allergy Relief] 2 spray NS DAILY 08/25/22 Montelukast Sodium [Singulair] 10 mg PO BEDTIME 08/25/22 Multivit-Min/Iron/Folic Acid/K [One Daily Women's Multivitamin] 1 tab PO DAILY 08/25/22 Prolia 60 mg SQ DIRECTED 08/25/22 glipiZIDE [Glucotrol*] 5 mg PO DAILY 08/25/22 icosapent ethyL [Vascepa 1 gm Cap] 1 tab PO BID 08/25/22 Aspirin Chewable [Aspirin Chewable*] 81 mg PO DAILY #30 tab.chew 09/01/25 Atorvastatin Calcium [Lipitor] 40 mg PO BEDTIME #30 tab 09/01/25 Hydralazine [Apresoline*] 25 mg PO TID #90 tab 09/01/25 Melatonin 10 mg PO BEDTIME PRN PRN #30 09/01/25 Ticagrelor [Brilinta*] 90 mg PO BID #60 tab 09/01/25 New Medications: Hydralazine [Apresoline*] 25 mg PO TID #90 tab Aspirin Chewable [Aspirin Chewable*] 81 mg PO DAILY #30 tab.chew Ticagrelor [Brilinta*] 90 mg PO BID #60 tab Atorvastatin Calcium [Lipitor] 40 mg PO BEDTIME #30 tab Melatonin 10 mg PO BEDTIME PRN PRN #30 PRN Reason: Insomnia Physician Discharge Instructions: OK TO DC IV AND DC HOME; please arrange for home health prior to discharge Please make sure blood pressure is stable prior to discharging; systolic blood pressure less than 160 and diastolic blood pressure less than 100. Please make sure patient is Brilinta is available at the pharmacy prior to discharge Please hold metformin for 24 hours. Patient can resume the metformin on Friday, September 03, 2025 FOLLOW-UP WITH PRIMARY CARE PROVIDER IN 1-2 WEEKS FOLLOW-UP WITH CARDIOLOGY IN 1-2 WEEKS RETURN TO THE ER IF symptoms worsen CALL DR. JAIMES AT [phone] IF ANY QUESTIONS REGARDING HOSPITAL STAY. PLEASE CALL THE FLOOR AT [phone] IF ANY MEDICATION OR NURSING QUESTIONS. Diet: AHA Activity: Fall precautions Followup: Yuliana Green MD [Primary Care Provider] - Time spent managing pt's care (in minutes): 35
[2025-09-01] MEDS ORDERED: MORPHINE 4 MG/ML SYR IV PRN (10:55)
[2025-09-01 11:27] VITALS: BP 132/58; TEMP 97.2
--- NOTE | 2025-09-02 23:45 | OP ---
Date of Procedure: 08/31/2025 Surgeon: Jim Pedro Procedures Performed: 1. Selective coronary angiogram. 2. Left heart catheterization. 3. PCI of severe mid LAD disease, used 2.75 x 28 mm Synergy drug-eluting stent. Indication: Unstable angina. Access: Right common femoral artery 6-Finnish closed with 6-Finnish Angio-Seal. Bleeding: Less than 50 mL. Total Sedation Time: 90 minutes. Complications: Contained perforation of the mid LAD. Description Of Procedure: After risks, benefits, and alternatives were explained, the patient agreed to procedure and signed informed consent. The [facility], prepped and draped in the usual sterile fashion. Then, I accessed right common femoral arter y using micropuncture kit, ultrasound guidance, fluoroscopy, placed 6-Finnish [place] sheath and took a 6-Finnish JL4 catheter over J-wire into aortic root, engaged left main, took standard views and exc hanged for 6-Finnish JR4 catheter, engaged the RCA, took standard views and then gave systemic heparin to assure ACT level above 250 and gave Brilinta 180 mg and took EBU3.5 guide into the aortic root, e ngaged left main, took run-through wire into the LAD, placed it distally and then using a 3.0 balloon , lesion expanded very well and took 2.75 x 28 mm Synergy drug-eluting stent across the stenosis and this jailed the diagonal 2, but distal with BRENDA-3 flow in it and after deployment of stent, there wa s a focal perforation of the LAD; however, it was contained into the muscle. Bedside echo showed no pericardial effusion. This was repeated in 30 minutes. Also, no pericardial effusion. Blood pressu re remained stable. I then took the wire out and final angiogram was satisfactory. The patient was sent to Recovery in stable condition to be admitted overnight to be observed. Findings: 1. Left main is normal. 2. LAD; proximal 30%, mid diffuse heavily calcified 80%, status post successful PCI. Then diagonal 2 branch is jailed about 60% ostially and 80% distally, which is a very small vessel less than 1 mm. 3. Left circumflex; moderate size and widely patent, and there is an OM stent that is patent. In the proximal portion of the OM, there is 30% stenosis and in the circ in the mid segment after the OM ta keoff, there is focal 40% stenosis. 4. RCA; large and dominant, proximal 40%, mid long 50%, and PDA has mid 50% stenosis. 5. LVEDP is 20 mmHg. Conclusions: 1. Severe mid LAD disease, status post successful PCI. However, jailed the diagonal. The patient patel d chest pain. She will be admitted for overnight observation. Start her on nitroglycerin and contin ue Brilinta and aspirin. If she is chest-pain free, she can be released and then we will plan to rev isit the coronary arteries in about 4 weeks. Continue Brilinta and aspirin. 2. Moderate coronary artery disease elsewhere. Recommendation: Brilinta, aspirin, high-dose statin. Admit for observation. /RATNA Voice ID: [id number] Report ID: [id number]
== END 2025-09-01 11:25 | disposition home or self-care (01) | DRG 322 ==
LOC: CCL 06:00 → 3RD-ICU 11:35
PROVIDERS: ADMIT Hospitalist; ATTEND Hospitalist
PROC: 027034Z Dilation of Coronary Artery, One Artery with Drug-eluting Intraluminal Device, Percutaneous Approach (ICD-10-PCS; principal; 2025-08-31)
PROC: 4A023N7 Measurement of Cardiac Sampling and Pressure, Left Heart, Percutaneous Approach (ICD-10-PCS; 2025-08-31)
PROC: B2111ZZ Fluoroscopy of Multiple Coronary Arteries using Low Osmolar Contrast (ICD-10-PCS; 2025-08-31)
DX: I25.10 Atherosclerotic heart disease of native coronary artery without angina pectoris (principal); I10 Essential (primary) hypertension; I34.0 Nonrheumatic mitral (valve) insufficiency; E78.5 Hyperlipidemia, unspecified; E11.9 Type 2 diabetes mellitus without complications; Z88.1 Allergy status to other antibiotic agents; Z88.5 Allergy status to narcotic agent; Z88.0 Allergy status to penicillin; Z88.2 Allergy status to sulfonamides; Z79.82 Long term (current) use of aspirin; Z79.84 Long term (current) use of oral hypoglycemic drugs; Z79.4 Long term (current) use of insulin; Z79.899 Other long term (current) drug therapy; Z90.49 Acquired absence of other specified parts of digestive tract; Z90.710 Acquired absence of both cervix and uterus; Z87.891 Personal history of nicotine dependence; Z95.5 Presence of coronary angioplasty implant and graft
CPT/HCPCS: 36415; 71046; 76937; 80048; 80053; 82947; 84484; 85025; 85347; 85610; 85730; 93005; 93458; 99152; C1725; C1760; C1893; C9600; J0360; J1644; J2003; J2250; J3010; J7040; Q9967